=== PATIENT | female | born 1975 | race Caucasian/White ===

== ENCOUNTER 2018-07-13 15:37 | Outpatient (REF) | payer OTHER, SELFPAY ==
[2018-07-13 19:19] LABS: Abs Immature Grans 0.01 k/cumm (0.0-0.09); Absolute Basophil Count 0.03 k/cumm (0.0-0.2); Absolute Eosinophil Count 0.21 k/cumm (0.0-0.7); Absolute Lymphocyte Count 1.25 k/cumm (1.2-3.4); Absolute Monocyte Count 0.49 k/cumm (0.11-0.7); Absolute Neutrophil Count 4.47 k/cumm (1.2-6.7); Basophils % 0.5; Eosinophils % 3.3; HCT 38.4 % (36.0-46.0); HGB 12.5 g/dL (12.0-15.5); Immature Grans % 0.2; Lymphocytes % 19.3; Mean Corp. HGB Concentration 32.6 g/dL (32.0-36.0); Mean Corpuscular Hemoglobin 27.8 pg (27.0-33.0); Mean Corpuscular Volume 85.3 fL (80-95); Mean Platelet Volume 9.8 fL (8.0-11.0); Monocytes % 7.6; Neutrophils % 69.1; Platelet Count 366 x1000/uL (130-400); RBC Distribution Width 13.3 % (11.7-14.6); White Blood Cell Count 6.46 k/cumm (4.4-10.8)
[2018-07-13 20:19] LABS: ALT 17 U/L (12-78); AST 17 U/L (15-37); Albumin 3.3 g/dL (3.4-5.0); Alkaline Phosphatase 80 U/L (46-116); Anion Gap 8.7 mmol/L (3-11); BUN 17 mg/dL (7-18); Bilirubin, Total 0.2 mg/dL (0.2-1.0); CO2 30.3 mmol/L (21.0-32.0); CREATININE 0.66 mg/dL (0.55-1.02); Calcium 8.9 mg/dL (8.5-10.1); Chloride 104 mmol/L (98-107); Glucose 78 mg/dL (70-100); Potassium 3.6 mmol/L (3.5-5.1); Sodium 143 mmol/L (136-145); TSH (W/Ref FT4) 6.68 uIU/mL (0.358-3.74); Total Protein 7.5 g/dL (6.4-8.2)
[2018-07-13 21:02] LABS: FREE T4 0.66 ng/dL (0.76-1.46)
== END 2018-07-13 15:57 ==
LOC: NCHCN 15:37
PROVIDERS: PCP Nurse Practitioner Family; Visit Provider Nurse Practitioner Family
DX: Z00.00 Encounter for general adult medical examination without abnormal findings (principal); E04.2 Nontoxic multinodular goiter; E06.3 Autoimmune thyroiditis; R53.83 Other fatigue; I83.812 Varicose veins of left lower extremity with pain
CPT/HCPCS: 80053; 84439; 84443; 85025

== ENCOUNTER 2019-03-14 15:25 | Outpatient (REF) | payer OTHER, SELFPAY ==
[2019-03-20 08:37] LABS: IgA 192 mg/dL (85-499); Interpretation SEE COMMENTS; Tissue Transglutaminase IgA <1.2 U/mL (<4.0)
== END 2019-03-14 15:45 ==
LOC: NCHCN 15:25
PROVIDERS: PCP Nurse Practitioner Family; Visit Provider Nurse Practitioner Family
DX: K21.9 Gastro-esophageal reflux disease without esophagitis (principal); R19.7 Diarrhea, unspecified; R10.84 Generalized abdominal pain
CPT/HCPCS: 82784; 83516

== ENCOUNTER 2019-04-19 11:56 | Outpatient (REF) | payer OTHER, SELFPAY ==
[2019-04-19 14:03] LABS: TSH (W/Ref FT4) 1.77 uIU/mL (0.36-3.74)
== END 2019-04-19 12:16 ==
LOC: NCHCN 11:56
PROVIDERS: PCP Nurse Practitioner Family; Visit Provider Nurse Practitioner Family
DX: E06.3 Autoimmune thyroiditis (principal)
CPT/HCPCS: 84443

== ENCOUNTER 2020-01-19 15:08 | Outpatient (REF) | payer OTHER, SELFPAY ==
[2020-01-19 16:32] LABS: TSH (W/Ref FT4) 4.63 uIU/mL (0.36-3.74)
[2020-01-19 17:51] LABS: FREE T4 0.99 ng/dL (0.76-1.46)
== END 2020-01-19 15:28 ==
LOC: NCHCN 15:08
PROVIDERS: PCP Nurse Practitioner Family; Visit Provider Nurse Practitioner Family
DX: E06.3 Autoimmune thyroiditis (principal)
CPT/HCPCS: 84439; 84443

== ENCOUNTER 2020-02-26 18:48 | Outpatient (REF) | payer OTHER, SELFPAY ==
[2020-02-26 19:06] LABS: TSH (W/Ref FT4) 3.99 uIU/mL (0.36-3.74)
[2020-02-26 19:44] LABS: FREE T4 1.07 ng/dL (0.76-1.46)
== END 2020-02-26 19:08 ==
LOC: NCHCN 18:48
PROVIDERS: PCP Nurse Practitioner Family; Visit Provider Nurse Practitioner Family
DX: E06.3 Autoimmune thyroiditis (principal); Z00.00 Encounter for general adult medical examination without abnormal findings
CPT/HCPCS: 84439; 84443

== ENCOUNTER 2020-10-12 20:45 | Emergency (ER) | payer OTHER, SELFPAY ==
[2020-10-12] VITALS (13 sets, daily range): BP systolic 132; BP diastolic 76; PULSE 88–112; RESP 16–24; TEMP 37.2; O2SAT 95–100
--- NOTE | 2020-10-12 21:00 | RT.EKG_ITS ---
APPROVED REPORT Exam: Resting ECG Reason for Exam: epigastric pain Patient Location: E HR:90 bpm ECG Measurements Heart Rate 90 AXIS SD 115 P 11 QRSd 126 QRS 46 QT 394 T -7 QTc 482 Conclusion Sinus rhythm...normal P axis, V-rate 60- 99 Nonspecific intraventricular conduction delay...QRSd >115mS, not LBBB/RBBB Physician: Rate 90, sinus rhythm, no significant ST elevation or depression. No T wave inversion exc ept for in lead III. No STEMI.
--- NOTE | 2020-10-12 21:00 | DI.CT_ITS ---
Exam(s) CT ABDOMEN PELVIS W EXAM: CT ABDOMEN PELVIS W INDICATION: epigastric pain, vomiting, diarrhea, etoh. COMPARISON: No exams were available for comparison TECHNIQUE: FINDINGS: CT examination of the abdomen and pelvis was performed with a bolus infusion of 100 cc of Omnipaque 3 50. Images obtained through the lung bases are unremarkable. There are multiple loops of dilated bowel throughout the abdomen, multiple areas of wall thickening a re seen throughout the small bowel, question enteritis. The liver is unremarkable in appearance. Gallbladder and bile ducts are CT normal. Pancreas appears normal. Spleen is unremarkable in appearance. Adrenals appear normal. The kidneys are unremarkable with no evidence of hydronephrosis, nephrolithiasis, or renal mass.. Ur inary bladder unremarkable. Abdominal aorta is of normal diameter and no major vascular abnormality is seen. No abdominal wall hernia. No abdominal or pelvic adenopathy. There is a small to moderate quantity of free fluid in the pelvis. There is a suboptimally defined a pproximately 8 cm in greatest diameter low-attenuation structure, this is nonspecific but may represe nt an ovarian cysts, probably arising from right ovary with some complex and thickened septations of the right ovary. Correlation with pelvic ultrasound recommended for further characterization to excl ude malignancy or infectious process. Appendix is normal. No evidence of diverticulitis or bowel obstruction. IMPRESSION: Diffuse small bowel wall thickening and dilatation, question enteritis, please correlate clinically. Cystic/mixed pelvic mass, probably ovarian in origin originating from right ovary, pelvic ultrasound requested for correlation to exclude malignancy. RADIATION DOSE DELIVERED: 1,264.57mGy.cm Total DLP 1,264.57mGy.cm Total DLP RADIATION OPTIMIZATION: All CT scans at this facility use at least one of these dose optimization te chniques: automated exposure control; mA and/or kV adjustment per patient size (includes targeted exa ms where dose is matched to clinical indication); or iterative reconstruction.
--- NOTE | 2020-10-12 21:28 | ED.GENADUL_ITS ---
Discharge Plan Disposition Patient Disposition: [facility] Condition: Serious Discharge Details Chief Complaint: Abd Prob Clinical Impression: Pelvic mass, Ovarian torsion, Abdominal pain Primary Care Provider: Clint Calvert ED Provider: [facility] Meds and New Rx's Prescriptions: No Action ibuprofen 600 MG tablet 600 mg PO Q6H PRN (Reason: Pain) Qty: 20 RF: 0 levothyroxine 125 mcg tablet 125 mcg PO DAILY AM RF: 0 Medical Decision Making This is a 45-year-old female without much significant past medical history who presents today for evaluation of epigastric pain and lower pelvic pain. The patient states that around noon she developed mild epigastric and pelvic pain, gradual, which eventually worsened over the next few hours. At 4 PM she went had a loose bowel movement and urinated and had complete resolution of her pain. Shortly thereafter she developed sudden sharp and achy epigastric pain in the lower pelvic pain, pain has not remitted since. She has had associated vomiting, dark diarrhea, which she describes as nonbloody. She does admit to alcohol intake tonight, and did take 4 twisted teas earlier. She admits to drinking a single twisted tea nightly but otherwise does not drink any excessive alcohol. She denies any headache, chest pain, shortness of breath. She denies any personal cardiac history. No other complaints at this time. She denies chest pain or shortness of breath. She denies any radiation to the back or scapula. No other complaints at this time. Of note she does admit to a history of some chronic epigastric pain but states that this is notably different, more severe, and that she has not had the pelvic pain like this before. Physical exam demonstrates epigastric and right upper quadrant tenderness, but there also does seem to be some lower abdominal tenderness and pelvic tenderness as well. EKG shows no evidence of significant cardiac abnormality or ST elevation. Suspect the patient symptoms are likely from pancreas, cholecystitis or biliary colic. The lower abdominal tenderness is atypical though, we will get a CT scan for further assessment. She denies any vaginal discharge. We will treat the patient's pain, give a GI cocktail for potential gastric irritation however symptoms appear slightly inconsistent with alcoholic gastri tis. Will monitor closely and reassess. We will rehydrate. Symptoms at this time appear clinically inconsistent with ACS or PE or dissection. She has no history of A. fib or vascular disease. 12:23 AM Patient's pain has improved with morphine, but is still present. Laboratory work-up shows mild white count of 12.7, no bandemia. Lactate is notably unremarkable at 0.9. Electrolytes are normal. Renal function good. Troponin and EKG normal. Lipase normal. Urinalysis demonstrates some ketones but no other significant abnormality otherwise. Alcohol negative. Repeat exam continues to demonstrate mild epigastric tenderness and slightly more prominent lower pelvic tenderness. CT scan shows 2 abnormalities of no worthiness, patient demonstrates a circumferential wall thickening involving 10 cm segment of the jejunum, and also evidence of an 8 x 8 cm cystic mass appears septated in the pelvis. Radiology feels the jejunal component is atypical, they do not see any evidence upon my discussion with the radiologist of atherosclerotic disease, or other abnormality. Additionally the patient has no risk factors for ischemic gut picture she has no history of A. fib, vascular disease, or history of this. Additionally her lactate is normal. I did perform a stool Hemoccult and this was negative. In regards to the pelvic mass, torsion is of concern especially with the size of the mass. There is some free fluid in the pelvis, no other acute process. I did contact Dr. Clark of surgery and discussed the case, imaging, and labs with her. She does feel that this would certainly be atypical and/or inconsistent with ischemic gut in light of the normal lactate, and no history of vascular disease. She does defer to OB for the pelvic mass and potential torsion. No ultrasound is currently available. Did reach out to the on-call OB doctor, Dr. Piper. Nursing supervisor chlorine liquefaction has stated that she will contact us shortly. 12:49 AM Discussed the case with Dr. Piper, she is concerned for potential tumor or mass, and feels that patient does need surgical intervention, but because of the concern for potential malignancy she feels that the patient would require intraoperative oncology for a frozen smear, and feels that this patient would best be managed at [facility] rather than here. We will reach out to [facility]. 2:56 AM Discussed the case with of OB, and Dr. Fermin in the ED. They agree with the assessment and plan and agree with the need for transfer. Patient will be transferred in the ED to ED transfer. Patient's repeat lactate has returned and is 0.3, which appears to be notably inconsistent with an ischemic gut clinical picture. Repeat exam does not demonstrate evidence clinically of an ischemic gut at this time. Pain is notably improved with repeated dosings of morphine. Symptoms remain concerning for ovarian mass and torsion clinical picture. Patient will be transferred to [facility] for further surgical management. I have extensively reviewed the treatment plan with the patient. I have addressed all patient concerns at this time. I have also discussed the plan with the admitting physician and they agree with the current assessment and plan and have agreed to assume responsibility for the patient. All parties demonstrate verbal understanding and agreement with our assessment and plan at this time. The documentation in this chart was dictated using [employer] dictation software. Please excuse any dictation errors. EKG 22: 40 Rate 90, sinus rhythm, no significant ST elevation or depression. No T wave inversion except for in lead III. No STEMI. FINDINGS: Lungs: Lung bases are unremarkable. Liver: Homogeneously enhances without mass. Gallbladder and bile ducts: Gallbladder is mildly distended with minimal intrahepatic duct dilatation. Pancreas: No mass or peripancreatic edema. Spleen: Homogeneously enhances. No splenomegaly. Adrenal glands: No adrenal nodule. Kidneys and ureters: There is a 1.7 cm left renal cyst. Kidneys otherwise homogeneously enhance. No hydronephrosis. Stomach and bowel: There is circumferential wall thickening involving an approximately 10 cm segment jejunum. There is submucosal hypodensity within this segment with subtle stranding the adjacent mesentery. No pericolonic inflammation. No significant bowel dilatation. Appendix: No inflammation at the expected level of the appendix.. Intraperitoneal space: There is a mildly septated cystic mass centered within the cul-de-sac measuring approximately 8 x 7.7 cm. There is a small amount ascites adjacent to the right inferior hepatic lobe tip, left hemipelvis and adjacent the uterine fundus. Vasculature: No abdominal aortic aneurysm. Lymph nodes: No significant adenopathy. Urinary bladder: No definite bladder wall thickening. Reproductive: There are mildly prominent vessels in the right adnexal region. Bones/joints: No significant bony or joint space abnormality. Soft tissues: Extra-abdominal soft tissues are unremarkable. IMPRESSION: 1. Septated cystic pelvic mass with associated ascites. Follow-up pelvic ultrasound recommended for further evaluation of the mass and to exclude ovarian torsion. 2. Segmental small bowel wall thickening with differential including intramural hemorrhage and/or ischemia. Thank you for allowing us to participate in the care of your patient. Dictated and Authenticated by: Davin Baires MD 10/12/2020 11:52 PM Eastern Time ([place] & [place]) HPI General Date/Time Provider Initiated Documentation: 10/12/20 20:48 . HPI Narrative: This is a 45-year-old female without much significant past medical history who presents today for evaluation of epigastric pain and lower pelvic pain. The patient states that around noon she developed mild epigastric and pelvic pain, gradual, which eventually worsened over the next few hours. At 4 PM she went had a loose bowel movement and urinated and had complete resolution of her pain. Shortly thereafter she developed sudden sharp and achy epigastric pain in the lower pelvic pain, pain has not remitted since. She has had associated vomiting, dark diarrhea, which she describes as nonbloody. She does admit to alcohol intake tonight, and did take 4 twisted teas earlier. She admits to drinking a single twisted tea nightly but otherwise does not drink any excessive alcohol. She denies any headache, chest pain, shortness of breath. She denies any personal cardiac history. No other complaints at this time. She denies chest pain or shortness of breath. She denies any radiation to the back or scapula. No other complaints at this time. Of note she does admit to a history of some chronic epigastric pain but states that this is notably different, more severe, and that she has not had the pelvic pain like this before. Related Data Home Medications Medication Instructions Recorded Confirmed ibuprofen 600 mg PO Q6H PRN #20 tab 04/21/17 levothyroxine 125 mcg PO DAILY AM 10/12/20 10/12/20 Previous Rx's Medication Instructions Recorded ibuprofen 600 mg PO Q6H PRN #20 tab 04/21/17 Allergies Allergy/AdvReac Type Severity Reaction Status Date / Time No Known Allergies Allergy Unverified 04/21/17 08:39 General Stated Complaint: Abd Prob OKSANA: 3 Review of Systems All systems reviewed & are unremarkable except as noted in HPI and below PFSH Social History Smoking/Tobacco Use Status: Former Tobacco Use Smoking risk assessment performed?: Yes Alcohol Intake: current Alcohol Intake frequency: 0-2 drinks per day Drug use: Rarely Substance use type: does not use and marijuana Do you feel safe at home: Yes Do you feel safe in your relationship?: Yes Exam Narrative Exam Narrative: 1.Const: Well-nourished, Well-developed, appearing stated age 2.Eyes: PERRL, no conjunctival injection, and symmetrical lids. 3.ENT: Atraumatic external nose and ears. Moist MM. Neck: Symmetric, trachea midline, No thyromegaly. 4.CVS: +S1/S2, No murmurs or gallops. Peripheral pulses 2+ and equal in all extremities. Brisk capillary refill in all extremities. 5.RESP: Unlabored respiratory effort. Clear to auscultation bilaterally. No wheezes rales or rhonchi 6.GI: Soft, notable epigastric tenderness, pain in the right upper quadrant and left upper quadrant as well. No pain at McBurney's point, patient does seem to have a positive Harrison sign. She does have pain in the generalized lower abdominal region though as well, including the pelvic region. No flank or CVA tenderness. 7.MSK: Normocephalic/Atraumatic, Extremities w/o deformity or ttp No cyanosis or clubbing, Normal movement of all extremities 8.Skin: Warm, Dry. No rashes or lesions. 9.Neuro: director of collections II-XII grossly intact. Sensation grossly intact, no focal neurologic deficits. 10.Psych: (AAO) x3. Appropriate mood and affect Course Vital Signs Vital signs: Vital Signs Temperature 37.2 C 10/12/20 21:02 Pulse 112 H 10/12/20 21:02 Respiratory Rate 18 10/12/20 21:02 Blood Pressure 132/76 10/12/20 21:02 Pulse Oximetry 100 10/12/20 21:02 Temperature 37.2 C 10/12/20 21:02 Temperature Source Temporal Artery Scan 10/12/20 21:02 Pulse 112 H 10/12/20 21:02 Respiratory Rate 18 10/12/20 21:02 Blood Pressure 132/76 10/12/20 21:02 Blood Pressure Position Supine 10/12/20 21:02 Pulse Oximetry 100 10/12/20 21:02 Oxygen Delivery Method Room Air 10/12/20 21:02 Oxygen Flow Rate 0 10/12/20 21:02 Pain Level 8 10/12/20 21:02
[2020-10-12 21:41] LABS: Abs Immature Grans 0.04 10^3/uL (0.0-0.06); Absolute Eosinophil Count 0.01 10^3/uL (0.0-0.7); Absolute Lymphocyte Count 0.43 10^3/uL (1.2-3.4); Absolute Monocyte Count 0.82 10^3/uL (0.1-0.8); Absolute Neutrophil Count 11.42 10^3/uL (1.2-6.7); Basophils % 0.2; Eosinophils % 0.1; Immature Grans % 0.3; Lymphocytes % 3.4; MCH 27.3 pg (27.0-33.0); MCHC 32.4 % (32.0-36.0); MCV 84.1 fL (80-95); MPV 9.3 fL (8.0-11.0); Monocytes % 6.4; Neutrophils % 89.6; Nucleated RBC 0 %; Platelet Count 291 10^3/uL (130-400); RDW 13.3 % (11.7-14.6); RDW-SD 41.1 fL; WBC 12.74 10^3/uL (4.4-10.8)
[2020-10-12] MEDS: Ondansetron 4 MG/2 ML VIAL IVP (21:42)
[2020-10-12] MEDS: Normal Saline 1,000 ML 1000 ML IV (21:43)
[2020-10-12 21:45] LABS: Lactate 0.9 mmol/L (0.6-1.4)
[2020-10-12 21:56] LABS: Lipase 54 U/L (73-393)
[2020-10-12 22:01] LABS: ALT 19 U/L (14-59); AST 24 U/L (15-37); Albumin 3.4 g/dL (3.4-5.0); Alkaline Phosphatase 75 U/L (46-116); Anion Gap 10.8 mmol/L (3-11); BUN 9 mg/dL (7-18); Bilirubin, Total 0.4 mg/dL (0.2-1.0); CO2 27.2 mmol/L (21.0-32.0); CREATININE 0.8 mg/dL (0.55-1.02); Calcium 8.5 mg/dL (8.5-10.1); Chloride 105 mmol/L (98-107); Glucose 98 mg/dL (74-106); Potassium 3.9 mmol/L (3.5-5.1); Sodium 143 mmol/L (136-145); Total Protein 7.6 g/dL (6.4-8.2)
[2020-10-12 22:07] LABS: Troponin I < 0.05 ng/mL (<0.06)
[2020-10-12] MEDS: Normal Saline - Diluent 50 ML VIAL IV (22:12)
[2020-10-12] MEDS: Omnipaque 350 MG/ML 100 ML BTL IJ (22:12)
[2020-10-12 22:16] LABS: ETHANOL BLOOD < 3.0 mg/dL (<3)
[2020-10-12 22:20] LABS: Absolute Basophil Count 0.03 10^3/uL (0.0-0.2)
[2020-10-12 22:23] LABS: Bilirubin Negative (Negative); Blood Moderate (Negative); Clarity Clear (Clear); Glucose Negative (Negative); Ketones 80 mg/dL (Negative); Leukocyte Esterase Negative (Negative); Nitrite Negative (Negative); Specific Gravity 1.025 (1.005-1.025); Urobilinogen 0.2 EU/dL (Up TO 0.2); pH 5.5 (5-8)
[2020-10-12 22:42] LABS: Bacteria Negative HPF (Negative); C & S Indicated? No; Casts Negative LPF (Negative); Crystals Negative HPF (Negative); Epithelial Cells Few HPF (Negative); Mucus Negative (Negative); Other Cells Negative (Negative); WBC 0-2 HPF (0-5)
[2020-10-12 23:01] LABS: Bilirubin, Direct 0.1 mg/dL (0.0-0.2)
[2020-10-12 23:13] LABS: INR 1.1 (0.9-1.1); PTT Activated 25.5 sec (21.0-27.5); Prothrombin Time 10.9 sec (9.3-11.0)
[2020-10-12] MEDS: ACETAMINOPHEN 1,000 MG/100 ML BTL 400 MG IVPB (23:30)
--- NOTE | 2020-10-12 23:53 | DI.VRAD_ITS ---
Addendum created by Davin Baires MD on 10/13/2020 12:04:01 AM EDT: THIS REPORT CONTAINS FINDINGS THAT MAY BE CRITICAL TO PATIENT CARE. The findings were verbally communicated via telephone conference with JOSIE CERVANTES at 12:03 AM EDT on 10/13/2020. The findings were acknowledged and understood. Initial report created on 10/12/2020 11:52:41 PM EDT: PROCEDURE INFORMATION: Exam: CT Abdomen And Pelvis With Contrast Exam date and time: 10/12/2020 9:05 PM Age: 45 years old Clinical indication: Abdominal pain; Epigastric TECHNIQUE: Imaging protocol: Computed tomography of the abdomen and pelvis with contrast. Total images: 1351 Radiation optimization: All CT scans at this facility use at least one of these dose optimization techniques: automated exposure control; mA and/or kV adjustment per patient size (includes targeted exams where dose is matched to clinical indication); or iterative reconstruction. Contrast material: OMNIPAQUE 350; Contrast volume: 1000 ml; Contrast route: INTRAVENOUS (IV); COMPARISON: No relevant prior studies available. FINDINGS: Lungs: Lung bases are unremarkable. Liver: Homogeneously enhances without mass. Gallbladder and bile ducts: Gallbladder is mildly distended with minimal intrahepatic duct dilatation. Pancreas: No mass or peripancreatic edema. Spleen: Homogeneously enhances. No splenomegaly. Adrenal glands: No adrenal nodule. Kidneys and ureters: There is a 1.7 cm left renal cyst. Kidneys otherwise homogeneously enhance. No hydronephrosis. Stomach and bowel: There is circumferential wall thickening involving an approximately 10 cm segment jejunum. There is submucosal hypodensity within this segment with subtle stranding the adjacent mesentery. No pericolonic inflammation. No significant bowel dilatation. Appendix: No inflammation at the expected level of the appendix.. Intraperitoneal space: There is a mildly septated cystic mass centered within the cul-de-sac measuring approximately 8 x 7.7 cm. There is a small amount ascites adjacent to the right inferior hepatic lobe tip, left hemipelvis and adjacent the uterine fundus. Vasculature: No abdominal aortic aneurysm. Lymph nodes: No significant adenopathy. Urinary bladder: No definite bladder wall thickening. Reproductive: There are mildly prominent vessels in the right adnexal region. Bones/joints: No significant bony or joint space abnormality. Soft tissues: Extra-abdominal soft tissues are unremarkable. IMPRESSION: 1. Septated cystic pelvic mass with associated ascites. Follow-up pelvic ultrasound recommended for further evaluation of the mass and to exclude ovarian torsion. 2. Segmental small bowel wall thickening with differential including intramural hemorrhage and/or ischemia. Dictated and Authenticated by: Davin Baires MD. Ordering:JAYME Madden MD
[2020-10-13] VITALS (39 sets, daily range): BP systolic 94–123; BP diastolic 46–68; PULSE 71–97; RESP 15–27; TEMP 37.3; O2SAT 93–97
[2020-10-13 01:22] LABS: Lactate 0.3 mmol/L (0.6-1.4)
== END 2020-10-13 04:00 | disposition short-term general hospital (02) ==
PROVIDERS: Emergency Provider Student in an Organized Health Care Education/Training Program; PCP Nurse Practitioner Family
DX: R19.09 Other intra-abdominal and pelvic swelling, mass and lump (principal); N83.511 Torsion of right ovary and ovarian pedicle; R10.13 Epigastric pain; R10.2 Pelvic and perineal pain
CPT/HCPCS: 36415; 80053; 81025; 83690; 93005; 96361; 96365; 96375; 96376; 99285; 74177; 80320; 81003; 81015; 82248; 83605; 84484; 85025; 85610; 85730; 93010; 99284; J0131; J2405; J3490

== ENCOUNTER 2020-10-16 15:05 | Emergency (ER) | payer OTHER, SELFPAY ==
[2020-10-16] VITALS (21 sets, daily range): BP systolic 109–131; BP diastolic 71–88; PULSE 73–98; RESP 15; TEMP 36.6; O2SAT 92–97
--- NOTE | 2020-10-16 15:45 | DI.CT_ITS ---
Exam(s) CT ABDOMEN PELVIS CTA EXAM: CT ABDOMEN PELVIS CTA CLINICAL HISTORY: severe abdomen pain. TECHNIQUE: Imaging Protocol: Axial computed tomography images with coronal and sagittal reformatted images were created and reviewed CONTRAST MATERIAL: Intravenous: Omnipaque 350 Contrast volume:100 ml Oral: None COMPARISON: CT CT ABDOMEN PELVIS W from 10/12/2020 FINDINGS: ABDOMEN: VISUALIZED LUNG BASES: Mild atelectasis. No pleural effusions There is no evidence of abdominal aortic aneurysm nor dissection.There is no aneurysmal dilatation of the common iliac arteries.The celiac and superior mesenteric arteries are patent.The inferior mesent lboo artery is patent. Aortic bifurcation is patent-unremarkable. Common and external iliac arteries exhibit normal diamete rs. No significant atherosclerotic disease in these vessels nor in the common femoral arteries. Bot h internal iliac arteries are also patent and nonaneurysmal. There are multiple bilateral renal cherelle christie which are all patent. There appear to be 3 left renal arteries in 2 right renal arteries, all w ith different origins off the aorta. All appear to be patent. Kidneys exhibit normal size. There is a moderate-large amount of ascites evident in the abdomen and pelvis. LIVER: There are no focal hepatic lesions nor dilatation of intrahepatic ducts. GALLBLADDER/BILIARY: No obvious gallbladder pathology. CBD is not dilated. PANCREAS: No evidence of pancreatic mass nor dilatation of the pancreatic duct. SPLEEN: Spleen is not enlarged. There are no intrasplenic lesions. Splenic and portal veins are lunsford nt. ADRENALS: There are no significant adrenal masses. KIDNEYS: No cysts evident. No calculi nor hydronephrosis. No solid renal masses. ABDOMINAL AORTA: The abdominal aorta is not enlarged. LYMPH NODES: There is no retroperitoneal nor para-aortic adenopathy. No obvious mesenteric masses. ABDOMINAL WALL: No evidence of significant anterior abdominal wall hernia. However, there is subcuta neous air in the left side of the abdomen. Possibly postsurgical. There is no intraperitoneal air. GI: There are dilated small bowel loops throughout the abdomen with average diameter 3.2 cm. The mos t distal small bowel loops exhibit normal diameter. Is difficult to locate the actual ileocecal valv e. PELVIS: LYMPH NODES: Multiple slightly prominent lymph nodes are seen throughout the mesentery. GI: No evidence of appendicitis.No evidence of sigmoid diverticulitis. URINARY BLADDER: No calculi nor masses evident REPRODUCTIVE: Uterus size is age-appropriate. There is abundant fluid in the cul-de-sac. Ovaries ar e not identified but there do not appear to be obvious ovarian masses. The fluid in the lung the lar ge amount of fluid in the cul-de-sac appears to be early related to the ascites. OSSEOUS: Benign appearing bone island noted anteriorly in L4 vertebral body. No lytic osseous lesion s evident. IMPRESSION: 1. There is a high-grade distal small-bowel obstruction. There is abundant ascites in the abdomen an d pelvis.. Surgical consultation recommended. 2. There is air seen in the subcutaneous fat over the left side of the abdomen and inguinal region. Possibly postsurgical. There is no free intraperitoneal air at this time. RADIATION DOSE DELIVERED: 977.59mGy.cm Total DLP DATA REPOSITORY: All CT scans at this facility are submitted to the National Radiology Data Registry (NRDR) Dose Index Registry (DIR) with the [employer] ([employer]). RADIATION OPTIMIZATION: All CT scans at this facility use at least one of these dose optimization te chniques: automated exposure control; mA and/or kV adjustment per patient size (includes targeted exa ms where dose is matched to clinical indication); or iterative reconstruction.
--- NOTE | 2020-10-16 15:49 | ED.GENADUL_ITS ---
Discharge Plan Disposition Patient Disposition: [facility] Condition: Stable Discharge Details Clinical Impression: SBO (small bowel obstruction) Primary Care Provider: Clint Calvert ED Provider: Oscar Pierre Home Meds and New Rx's Prescriptions: No Action ibuprofen 600 MG tablet 600 mg PO Q6H PRN (Reason: Pain) Qty: 20 RF: 0 levothyroxine 125 mcg tablet 125 mcg PO DAILY AM RF: 0 pantoprazole 40 mg tablet,delayed release (DR/EC) 40 mg PO DAILY RF: 0 ondansetron 4 mg tablet,disintegrating 4 mg PO PRN PRNRF: 0 oxycodone 5 mg tablet 5 mg PO PRN PRNRF: 0 Medical Decision Making 45 yo female who denies chronic medical problems comes in with chief complaint of abdomen pain and n/v. She was seen here on 10/[address] showing a right ovarian mass [place] [facility] [place] her right ovary and fallopian tube as well as partial left fallopian tube removed per the patient and was discharged yesterday. She states she started to have pain throughout her abdomen and today has been having persistent vomit though she does state she took zofran around noon and hasn't had an episode of vomit since though continues to have diffuse abdomen pain. Denies fevers, chills, chest pain, dyspnea. Has tenderness throughout the abdomen with mild distention which she states is new for her. Given her symptoms and recent surgery will obtain labs and imaging to evaluate for pneumoperitoneum, sbo, ileus and less likely mesenteric ischemia patient's labs unremarkable does have sbo on ct along with free fluid, remains stable. Will have nursing place NG tube and discuss with [place] health [place] [facility] [place] spoke with Dr. Newberry from surgery who accepts to their ED and spoke with [place]ernstein [place] [facility] [place] was made aware as well. Pt stable and NG tube placed by nursing without complications. Pt updated and agrees with plan Differential Diagnosis Differential Diagnosis: sbo, ileus, post op pain and nausea and vomit Medical Records Medical records reviewed: Yes I reviewed the patient's medical records. Imaging Data Radiologic Study: Attestation: I personally reviewed and interpreted this imaging study as follows: Imaging: CT Scan Radiologist's impression: IMPRESSION: 1. Findings suspicious for make an occult small-bowel obstruction in the mid to distal ileum, likely from adhesive disease. 2. Moderate to large amount of free fluid in the abdomen and pelvis. 3. Areas of wall thickening of distal ileum suspicious for enteritis 4. Postoperative changes in left anterior abdominal wall and both inguinal regions. Lab Data Lab results reviewed: Yes I reviewed the patient's lab results. HPI General Mode of arrival: ambulatory . Date/Time Provider Initiated Documentation: 10/16/20 15:15 . Limitations to Documentation: no limitations . Information obtained by: patient . History of Present Illness 45 year old F presents to the emergency department with the chief complaint of abdomen pain, described as moderate, Patient reports no radiation. Patient started experiencing this day(s) (1) and it has been constant. No relieving factors improve symptom(s), No exacerbating factors reported . Patient notes nausea/vomiting. Patient did receive the following treatments prior to arrival, none Related Data Home Medications Medication Instructions Recorded Confirmed ibuprofen 600 mg PO Q6H PRN #20 tab 04/21/17 10/16/20 levothyroxine 125 mcg PO DAILY AM 10/12/20 10/16/20 ondansetron 4 mg PO PRN PRN 10/16/20 10/16/20 oxycodone 5 mg PO PRN PRN 10/16/20 10/16/20 pantoprazole 40 mg PO DAILY 10/16/20 10/16/20 Previous Rx's Medication Instructions Recorded ibuprofen 600 mg PO Q6H PRN #20 tab 04/21/17 Allergies Allergy/AdvReac Type Severity Reaction Status Date / Time No Known Allergies Allergy Unverified 04/21/17 08:39 General Stated Complaint: Abd Prob OKSANA: 2 Review of Systems All systems reviewed & are unremarkable except as noted in HPI and below Constitutional Constitutional: Denies chills, Denies fever(s) and Denies weakness Cardiovascular Cardiovascular: Denies chest pain and Denies dyspnea Respiratory Respiratory: Denies cough and Denies dyspnea Neurologic Neurologic: Denies weakness [facility] Social History Smoking/Tobacco Use Status: Former Tobacco Use Smoking risk assessment performed?: Yes Alcohol Intake: current Alcohol Intake frequency: 0-2 drinks per day Drug use: Rarely Substance use type: does not use and marijuana Do you feel safe at home: Yes Do you feel safe in your relationship?: Yes Exam Const General: other (appears in pain) Orientation: alert HENOK Head: normal to inspection Ears: external ears normal General nose exam: external nose normal Mouth: moist mucous membranes Eyes General: appearance normal, both eyes and all related structures Neck Neck: normal visual inspection Resp Effort & Inspection: normal respiratory effort and able to speak in complete sentences Cardio Rate: regular rate GI Palpation: firm and tender Skin General skin exam: no rashes or lesions noted Neuro General: patient alert and patient oriented x3 Extrem General: normal to inspection Psych Mental Status: mental status grossly normal Course Vital Signs Vital signs: Vital Signs Temperature 36.6 C 10/16/20 15:35 Pulse 87 10/16/20 15:35 Respiratory Rate 15 10/16/20 15:35 Blood Pressure 117/73 10/16/20 15:35 Pulse Oximetry 96 10/16/20 15:35 Temperature 36.6 C 10/16/20 15:35 Pulse 87 10/16/20 15:35 Respiratory Rate 15 10/16/20 15:35 Blood Pressure 117/73 10/16/20 15:35 Pulse Oximetry 96 10/16/20 15:35 Oxygen Delivery Method Room Air 10/16/20 15:35 Oxygen Flow Rate 0 10/16/20 15:35 Pain Level 10 10/16/20 15:35
[2020-10-16] MEDS: Ondansetron 4 MG/2 ML VIAL IVP (16:07)
[2020-10-16] MEDS: Normal Saline 1,000 ML 1000 ML IV (16:07)
[2020-10-16 16:12] LABS: Abs Immature Grans 0.03 10^3/uL (0.0-0.06); Absolute Basophil Count 0.03 10^3/uL (0.0-0.2); Absolute Eosinophil Count 0.01 10^3/uL (0.0-0.7); Absolute Lymphocyte Count 0.71 10^3/uL (1.2-3.4); Absolute Monocyte Count 0.26 10^3/uL (0.1-0.8); Absolute Neutrophil Count 7.91 10^3/uL (1.2-6.7); Basophils % 0.3; Eosinophils % 0.1; HCT 48.4 % (36.0-46.0); HGB 15.6 g/dL (11.2-15.7); Immature Grans % 0.3; Lactate 1.2 mmol/L (0.6-1.4); Lymphocytes % 7.9; MCH 26.9 pg (27.0-33.0); MCHC 32.2 % (32.0-36.0); MCV 83.4 fL (80-95); MPV 9.7 fL (8.0-11.0); Monocytes % 2.9; Neutrophils % 88.5; Nucleated RBC 0 %; Platelet Count 411 10^3/uL (130-400); RDW 13.2 % (11.7-14.6); WBC 8.95 10^3/uL (4.4-10.8)
[2020-10-16 16:29] LABS: PTT Activated 23.8 sec (21.0-27.5); Prothrombin Time 10.2 sec (9.3-11.0)
[2020-10-16 16:35] LABS: ALT 13 U/L (14-59); AST 16 U/L (15-37); Albumin 3.1 g/dL (3.4-5.0); Alkaline Phosphatase 74 U/L (46-116); Anion Gap 11.4 mmol/L (3-11); BUN 8 mg/dL (7-18); Bilirubin, Direct 0.1 mg/dL (0.0-0.2); Bilirubin, Total 0.3 mg/dL (0.2-1.0); CO2 26.6 mmol/L (21.0-32.0); CREATININE 0.8 mg/dL (0.55-1.02); Calcium 8.9 mg/dL (8.5-10.1); Chloride 103 mmol/L (98-107); Glucose 121 mg/dL (74-106); Lipase 70 U/L (73-393); Potassium 3.6 mmol/L (3.5-5.1); Sodium 141 mmol/L (136-145); Total Protein 7.8 g/dL (6.4-8.2)
[2020-10-16] MEDS: Omnipaque 350 MG/ML 100 ML BTL IJ (16:45)
[2020-10-16] MEDS: Normal Saline - Diluent 50 ML VIAL IV (16:45)
--- NOTE | 2020-10-16 17:12 | DI.VRAD_ITS ---
Addendum created by Rebeka Pickett MD on 10/16/2020 5:24:32 PM EDT: THIS REPORT CONTAINS FINDINGS THAT MAY BE CRITICAL TO PATIENT CARE. The findings were verbally communicated via telephone conference with Oscar Pierre at 5:24 PM EDT on 10/16/2020. The findings were acknowledged and understood. Initial report created on 10/16/2020 5:12:28 PM EDT: PROCEDURE INFORMATION: Exam: CTA Abdomen and Pelvis With Contrast Exam date and time: 10/16/2020 3:53 PM Age: 45 years old Clinical indication: Abdominal pain; Acute; Prior surgery; Surgery date: 3-7 days post-operative; Surgery type: Cyst removal TECHNIQUE: Imaging protocol: Computed tomographic angiography of the abdomen and pelvis with contrast material. 3D rendering (Not supervised by radiologist): MIP and/or 3D reconstructed images were created by the technologist. Contrast material: OMNIPAQUE 350; Contrast volume: 100 ml; Contrast route: INTRAVENOUS (IV); COMPARISON: CT ABDOMEN PELVIS W 10/12/2020 10:15 PM FINDINGS: Lungs: Dependent atelectasis in the lungs. Aorta: No aortic aneurysm. No aortic dissection. Celiac trunk and mesenteric arteries: No occlusion or significant stenosis. Renal arteries: There are 3 left renal arteries, all of which appear patent. There are 2 right renal arteries, both of which appear patent. Right iliac arteries: No occlusion or significant stenosis. Left iliac arteries: No occlusion or significant stenosis. Liver: No mass. Gallbladder and bile ducts: Unremarkable. No calcified stones. No ductal dilation. Pancreas: Unremarkable. No mass. No ductal dilation. Spleen: Unremarkable. No splenomegaly. Adrenal glands: Unremarkable. No mass. Kidneys and ureters: Unremarkable. No solid mass. No hydronephrosis. Stomach and bowel: Dilated fluid-filled loops of small bowel throughout the abdomen with a maximum diameter 4.2 cm in the central abdomen. There is focal caliber change to normal caliber bowel in the more distal ileum seen in the right lower quadrant on axial series 5, images 47-51. This is suspicious for mechanical obstruction from adhesive disease. Several of the more distal loops of ileum have slightly thickened gaspar which could be due to enteritis. This appears similar to the CT of 10/12/2020. Gas distended transverse colon measuring approximately 5 cm in diameter. Distended fluid-filled cecum measuring approximately 7 cm in diameter. Appendix: No evidence of appendicitis. Intraperitoneal space: The the moderate to large amount of ascites. Lymph nodes: Stable enlarged mesenteric lymph nodes. Urinary bladder: Unremarkable. No mass. Reproductive: Unremarkable as visualized. Bones/joints: Minimal degenerative arthritis in the spine and pelvis. Soft tissues: Pockets of gas in the subcutaneous of bilateral inguinal regions, left worse than right and in left anterior abdominal wall. This is likely related to recent surgery.. IMPRESSION: 1. Findings suspicious for make an occult small-bowel obstruction in the mid to distal ileum, likely from adhesive disease. 2. Moderate to large amount of free fluid in the abdomen and pelvis. 3. Areas of wall thickening of distal ileum suspicious for enteritis 4. Postoperative changes in left anterior abdominal wall and both inguinal regions. Dictated and Authenticated by: Rebeka Pickett MD. Ordering:ANGELICA Moore MD
[2020-10-16] MEDS: Normal Saline 1,000 ML 150 ML IV (17:37)
== END 2020-10-16 19:35 | disposition short-term general hospital (02) ==
PROVIDERS: Emergency Provider Emergency Medicine; PCP Nurse Practitioner Family
DX: K56.699 Other intestinal obstruction unspecified as to partial versus complete obstruction (principal); R18.8 Other ascites; Z98.890 Other specified postprocedural states
CPT/HCPCS: 36415; 80053; 81025; 83690; 96361; 96374; 96375; 96376; 99285; 74174; 81003; 82248; 83605; 85025; 85610; 85730; J2405; J3490

== ENCOUNTER 2021-01-01 18:51 | Outpatient (REF) | payer OTHER, SELFPAY ==
[2021-01-01 21:50] LABS: Calculated LDL 99 mg/dL (<100); Cholesterol 153 mg/dL (<200); HDL Cholesterol 44 mg/dL (40-60); TSH (W/Ref FT4) 2.76 uIU/mL (0.36-3.74); Triglyceride 52 mg/dL (<150); Vitamin B12 619 pg/mL (193-986)
== END 2021-01-01 18:52 | disposition home or self-care (01) ==
LOC: NCHCN 18:51
PROVIDERS: PCP Nurse Practitioner Family; Visit Provider Nurse Practitioner
DX: E53.8 Deficiency of other specified B group vitamins (principal); E06.3 Autoimmune thyroiditis
CPT/HCPCS: 80061; 82607; 84443

== ENCOUNTER 2021-06-18 01:16 | Outpatient (CLI) | payer BC, SELFPAY ==
[2021-06-18 12:15] LABS: Source Nasal/Nares
[2021-06-18 15:08] LABS: COVID-19 PCR Negative (Negative)
== END 2021-06-18 01:17 | disposition home or self-care (01) ==
LOC: LBO 01:16
PROVIDERS: PCP Family Medicine; Visit Provider Podiatrist
DX: Z20.822 Contact with and (suspected) exposure to COVID-19 (principal); Z01.818 Encounter for other preprocedural examination
CPT/HCPCS: 87635

== ENCOUNTER 2021-06-20 06:13 | Day surgery (SDC) | payer BC, SELFPAY ==
--- NOTE | 2021-06-19 19:47 | W.PM.HP.N ---
Date of service: 06/19/21 Time of Service: 19:47 History of Present Illness History of Present Illness Chief Complaint: 46 YO Female with pain affecting the posterior of the right heel. Narrative: Right posterior heel pain interfering with shoe gear, work and daily activity which has not responded to palliativie treatments for surgical repair. PFSH All Active Problems Pelvic mass (Acute) Ovarian torsion (Acute) Abdominal pain (Acute) SBO (small bowel obstruction) (Acute) Medical History Acid reflux Allergic rhinitis Fatigue Goiter Patrick's thyroiditis History of varicose veins Vitamin B12 deficiency Surgical History History of removal of ovarian cyst and fallopian tube Social History Smoking/Tobacco Use Status: Former Tobacco Use Quit Date: 05/24/16 Smoking risk assessment performed?: Yes Alcohol Intake: current Alcohol Intake frequency: a few times a week Drug use: Rarely Substance use type: marijuana Do you feel safe at home: Yes Do you feel safe in your relationship?: Yes Meds Allergies and Home Medications Allergies Allergy/AdvReac Type Severity Reaction Status Date / Time No Known Allergies Allergy Unverified 06/18/21 14:55 Home Medications Medication Instructions Recorded Confirmed Type ibuprofen 600 mg PO Q6H PRN #20 tab 04/21/17 06/18/21 Rx levothyroxine 125 mcg PO DAILY AM 10/12/20 06/18/21 History ondansetron 4 mg PO PRN PRN 10/16/20 06/18/21 History oxycodone 5 mg PO PRN PRN 10/16/20 06/18/21 History cyanocobalamin (vitamin B-12) 1,000 mcg PO DAILY 06/16/21 06/18/21 History fexofenadine [Argelia Allergy] 60 mg PO DAILY 06/16/21 06/18/21 History omeprazole 20 mg PO DAILY 06/16/21 06/18/21 History Exam Narrative Exam Narrative: pleasant, 46 YO female in NAD Heads Normocephalic eyes PERLLA Hearing is adequate Uvula is midline, airway looked accessible Heart has RRR, no gallops, rubs or murmurs Lung mirza are clear Abdomen is soft, BS x 4 Enlargment of the posterior aspect of the right heel is noted at the level of the Achilles insertion. Muscle strength is 5/5. Radiographic evidence of a retro calcaneal exostosis and enthesopathy noted. Imp: Achilles enthesopathy right Calcaneal exostosis right Plan: Lili is being brought to the OR for debridement of the achilles tendon, resection of the calcaneal exostosis to the RLE. Risks and complications were reviewed emphasizing the potential for pain, scarring, infection, DVT, tendon rupture, calcaneal fracture, recurrence of enthesopathy requiring revision surgery. All questions were answered in detail. Informed consent obtained.
[2021-06-20 06:27] VITALS: BP 116/75; PULSE 82; RESP 16; TEMP 36.7; O2SAT 100
--- NOTE | 2021-06-20 07:03 | W.ANESPRE ---
General Info Date of Service Date Performed: 06/20/21 Height: 6 ft Weight: 106.2 kg Body Mass Index (BMI): 31.7 Surgical Procedure: Operation Date: 06/20/21 07:40 Proposed Procedures Side Surgeon p Debridement Right Achilles and Calcaneous Spur Right Yoni Bela Perez DPM Meds Allergies and Home Medications Allergies Allergy/AdvReac Type Severity Reaction Status Date / Time No Known Allergies Allergy Unverified 06/20/21 06:38 Home Medication Medication Instructions Recorded ibuprofen 600 mg PO Q6H PRN #20 tab 04/21/17 levothyroxine 125 mcg PO DAILY AM 10/12/20 ondansetron 4 mg PO PRN PRN 10/16/20 oxycodone 5 mg PO PRN PRN 10/16/20 cyanocobalamin (vitamin B-12) 1,000 mcg PO DAILY 06/16/21 fexofenadine [Argelia Allergy] 60 mg PO DAILY 06/16/21 omeprazole 20 mg PO DAILY 06/16/21 multivitamin [Daily Multi-Vitamin] tab 06/20/21 Current Visit Medications: Current Medications Generic Name Dose Route Start Last Admin Trade Name Freq PRN Reason Stop Dose Admin Sodium Chloride 500 mls @ 0 mls/hr 06/20/21 06:00 Saline 500ml Bag IV PRN PRN As Directed Cefazolin Sodium/Dextrose 2 gm in 50 mls @ 100 mls/hr 06/20/21 06:00 Ancef Duplex IVPB PREOP LETICIA Ringer's Solution 1,000 mls @ 80 mls/hr 06/20/21 06:00 IV 06/23/21 23:59 INFUSION LETICIA IV Miscellaneous Supplies 1 each 06/20/21 06:00 Iv Access IV DIRECTED LETICIA IV Miscellaneous Supplies 1 each 06/20/21 06:00 Iv Access IV 06/23/21 23:59 DIRECTED LETICIA Povidone Iodine 0 ml 06/20/21 06:00 Povidone-Iodine Soln. 118 Ml Btl TP DIRECTED LETICIA Sodium Chloride 0 ml 06/20/21 06:00 Normal Saline Flush 10 Ml Syr IV 06/23/21 23:59 PRN PRN Sodium Chloride 0 ml 06/20/21 06:00 Normal Saline 10 Ml Vial IJ 06/23/21 23:59 DIRECTED PRN Sterile Water 0 ml 06/20/21 06:00 Water,Injection,Sterile 10 Ml Vial IJ 06/23/21 23:59 DIRECTED PRN PFSH Active Problems Active Problems: Problem Status Onset Code Pelvic mass R19.00 Ovarian torsion N83.519 Abdominal pain R10.9 SBO (small bowel obstruction) K56.609 Medical History Medical History Acid reflux Allergic rhinitis Fatigue Goiter Patrick's thyroiditis History of varicose veins Vitamin B12 deficiency Medical History Comments:: Pt. reports siter reacted to anesthesia, N&V Surgical History Surgical History History of removal of ovarian cyst and fallopian tube Tobacco Smoking/Tobacco Use Status: Former Tobacco Use Alcohol Alcohol Intake: current Alcohol intake frequency: a few times a week Alcohol type: hard liquor Substance Use Substance use: Rarely Substance use type: marijuana Details: Pt. reports hasnt used substances in 12 months Vital Signs and Lab Results Vital Signs Most Recent Vital Signs in EMR: Most Recent Vital Signs Temp Pulse Resp BP Pulse Ox 36.7 C 82 16 116/75 100 06/20/21 06:27 06/20/21 06:27 06/20/21 06:27 06/20/21 06:27 06/20/21 06:27 Lab Results Blood Type / Crossmatch: No Data to Display Complete Blood Count: No Data to Display Complete Metabolic Panel: No Data to Display Liver Function Panel: No Data to Display Coagulation Panel: No Data to Display Cardiac Panel: No Data to Display Arterial Blood Gas: No Data to Display Venous Blood Gas: No Data to Display Pancreas Panel: No Data to Display Thyroid Panel: No Data to Display Infectious Disease: Coronavirus (COVID-19)(PCR) Negative (Negative) 06/18/21 08:40 06/18/21 Coronavirus 2019 Source Nasal/Nares 06/18/21 08:40 06/18/21 Blood Cultures: No Data to Display Toxicology Panel: No Data to Display Panel: No Data to Display Anesthesia Assessment and Plan Anesthesia History Personal History: No History of Anesthesia Complications Family History: Other Exercise Tolerance Exercise Tolerance: Metabolic Equivalents>4 Pertinent Negatives Pertinent Negatives: No Symptoms of GERD, No Major Cardiovascular Symptoms or Complaints, No Major Pulmonary Symptoms or Complaints and No History of CVA/TIA Cardiac & Pulmonary Exam Cardiac Exam: Normal S1/S2 Heart Sounds Pulmonary Exam: Clear Bilateral Breath Sounds Implantable Cardiac Device Does patient have a Pacemaker or an ICD?: No Airway Exam Known Difficult Airway: No Mallampati Class: 1 Mouth Opening: Normal (> 3cm) Thyromental Distance: Greater than 3 cm Neck Range of Motion: Full ROM Neck Circumference: Normal Teeth Condition: Normal Dentition Airway Comments: High angle narrow palate ASA Classification ASA Score: ASA 2 Emergency Case?: No NPO Status NPO Status: NPO Clears >2 hours, Solids >8 hours Status Status: Negative HCG Anesthesia Plan Resuscitation Status: Full Code Anesthesia Technique: Spinal Anesthesia Airway Planned: Natural Airway Monitors Used: Standard Monitors
[2021-06-20 07:06] VITALS: BMI 31.7
[2021-06-20] MEDS: Lactated Ringers 1,000 ML 80 ML IV (07:12)
[2021-06-20] MEDS: ceFAZolin 2 GM/50 ML BAG IVPB (07:37)
[2021-06-20] MEDS: Bupivacaine 0.5% Pres-Free 30 ML VIAL (07:45)
[2021-06-20] MEDS: Lidocaine 1% Multi-Dose 50 ML VIAL (07:45)
[2021-06-20 09:05] VITALS: BP 97/68; PULSE 56; RESP 16; TEMP 35.9; O2SAT 100
--- NOTE | 2021-06-20 09:05 | W.PM.DSUDISC ---
Discharge Plan Disposition Patient Disposition: HOME Condition: Good Discharge Details Reason For Visit: right achilles debridement/lengthening; calcaneal Attending Provider: Yoni Perez Primary Care Provider: Sushma Awan Home Meds and New Rx's Prescriptions: Continued ibuprofen 600 MG tablet 600 mg PO Q6H PRN (Reason: Pain) Qty: 20 RF: 0 levothyroxine 125 mcg tablet 125 mcg PO DAILY AM RF: 0 ondansetron 4 mg tablet,disintegrating 4 mg PO PRN PRNRF: 0 oxycodone 5 mg tablet 5 mg PO PRN PRNRF: 0 fexofenadine [Argelia Allergy] 60 mg Tablet 60 mg PO DAILY RF: 0 cyanocobalamin (vitamin B-12) 1,000 mcg Tablet 1,000 mcg PO DAILY RF: 0 omeprazole 20 mg Tablet,Delayed Release (Dr/Ec) 20 mg PO DAILY RF: 0 multivitamin [Daily Multi-Vitamin] Tablet RF: 0 Discharge Instructions Stand Alone Forms: Anesthesia Discharge Inst., Katherine Instructions-DSU, Clemente James (DSU) Equipment/Supplies: Non-Weight Bearing Crutches Activity:: Elevate Remove Dressings/Wound Care:: Do Not Remove Shower/Bathe:: Cover Diet:: Normal Diet Discharge Orders Discharge Orders: Discharge Order (Routine); Ordered 06/20/21 Ordered By: Yoni Perez DS: Diagnosis Discharge Diagnosis (1) Calcaneal spur of right foot: Status: Acute (2) Achilles tendinitis of right lower extremity: Status: Acute
--- NOTE | 2021-06-20 09:07 | W.PM.OP ---
Date of service: 06/20/21 Time of Service: 09:07 Operative Note Operative Note DATE OF PROCEDURE: 06/20/21 PRE-OP DIAGNOSIS: Right Achilles tendinitis, equinus, retrocalcaneal exostosis PROCEDURE: Tendo Achilles lengthening with debridement, retrocalcaneal exostectomy right lower extremity SURGEON: Yoni Perez ANESTHESIA TYPE: Spinal Refer to Anesthesia Record ESTIMATED BLOOD LOSS: 1 PATHOLOGY: none sent TOURNIQUET TIME: 63 COMPLICATIONS: None Patient was transported to: same day Patient's condition: stable Implants: 5 mm Mytec soft tissue anchor Indications: 46-year-old female with pain in the retrocalcaneal region of the right lower extremity which is not responded to palliative care which is now interfering with shoe gear and daily activities. She is opting for surgical intervention. She understands risk and complications of surgery pertaining to the potential for pain, scarring, infection, over or under correction, Achilles tendon rupture, calcaneal fracture and recurrence of original deformity potentially requiring revisional procedures. All questions have been answered. Informed consents been obtained. Procedure Description: Lili was brought to the operative suite where her spinal anesthetic was successfully placed and she was placed into a prone position. Timeout was performed for safe surgery by protocol. The right lower extremity was prepped and draped in the usual sterile podiatric fashion. Attention was directed to the right posterior heel region where a 4 cm incision was made ending just inferior to the retrocalcaneal spur. The incision was placed midline and was opened in controlled depth fashion with hemostasis being acquired by electrocautery as needed. The Achilles tendon was easily visualized and the overlying soft tissues gently retracted medially and laterally. Equinus deformity is noted and a tendo Achilles lengthening was performed the tenotomy's to place laterally along the tendon and 1 medially between the 2 lateral incisions the foot was plantarflexed the Achilles tendon easily lengthened and looked excellent attention was now directed to the distal attachment into the calcaneus this was transversely incised right against the calcaneus just below the exostosis. The Achilles tendon was reflected proximally the tendon itself was actually free of gross calcium deposition within the tendon mass but it was mildly hypertrophic the distal tendon piece was gently debrided reducing some of the hypertrophy with osteotome and mallet the retrocalcaneal spur was resected as was the Horacio's component of the deformity. Rongeur was used to remove all rough and edges and a hand rasp further used to smooth. Finger palpation and visualization revealed good resection of bone. Copious irrigation was performed. We utilized a 5 mm corkscrew Mytec soft tissue anchor placed into the os calcis at the level of the Achilles attachment and the Achilles brought back down onto the bone utilizing the attached suture. The repair was then supplemented with simple interrupted suture 2-0 Vicryl excellent reattachment and strength noted. The subcutaneous layer was then brought together with 3-0 Vicryl the subcuticular layer was brought together with 3-0 Vicryl in a running stitch of 4-0 Monocryl half-inch Steri-Strips were then applied with Mastisol Xeroform gauze fluff compression dressings applied and a well-padded posterior splint applied to the foot being held in mild plantarflexion the tourniquet was released to 63 minutes with vascularity returning immediately Lili left the OR with vital signs stable vascular status intact sharp and sponge counts were correct she will remain nonweightbearing on the right lower extremity and will be followed up by myself in the office next week. Dictated with Katarzyna naturally speaking not reviewed for accuracy
[2021-06-20 09:36] VITALS: BP 94/79; PULSE 63; RESP 16; TEMP 35.9; O2SAT 100
--- NOTE | 2021-06-21 10:55 | W.ANESPOSTOP ---
Postoperative Evaluation Date, Time and Location Date Performed: 06/20/21 Time Performed: 09:55 Patient Location: Day Surgery Unit Vital Signs Most Recent Imported Vital Signs: Most Recent Vital Signs Temp Pulse Resp BP Pulse Ox 35.9 C L 63 16 94/79 L 100 06/20/21 09:36 06/20/21 09:36 06/20/21 09:36 06/20/21 09:36 06/20/21 09:36 Pain Score Most Recent Pain Score: Most Recent Pain Score Pain Level 0 06/20/21 09:36 Assessment Mental Status: Awake (Alert & Oriented to Patient Baseline) Airway and Respiratory Function: Patent airway with normal (patient baseline) respiratory exam Cardiovascular Function: Hemodynamically Stable Hydration Status: Adequately Hydrated Nausea & Vomiting: No Nausea or Vomiting Pain: Pt. Denies Any Pain Peripheral Nerve Block: Patient did not receive a nerve block
== END 2021-06-20 10:30 | disposition home or self-care (01) ==
PROVIDERS: PCP Nurse Practitioner Family; Visit Provider Podiatrist
PROC: (CPT 28119; principal; 2021-06-20 07:30)
DX: M77.31 Calcaneal spur, right foot (principal); M76.61 Achilles tendinitis, right leg
CPT/HCPCS: 28119; 27685; 81025; C1713; J0690; J1100; J1885; J2001; J2250; J2405; J2704

== ENCOUNTER 2022-01-19 18:13 | Outpatient (REF) | payer BC, SELFPAY ==
--- NOTE | 2022-01-19 13:38 | SKI_PTH ---
PATIENT: Lili Persaud LOC: NCN #:[id number] AGE/SX: 46/F ROOM: RE01/19/[address]: Clint Calvert : 1975 BED: DIS: 01/19/2022 SPEC #: [id number] RECD: 01/19/22 18:25 STATUS: YAYO REQ #: [id number] SERGEI: 01/19/22 13:[address]: Clint Calvert DEPT: Surgical Specimen RECD BY: Shayy Kilgore ENTERED: 01/19/22 18:25 SP TYPE: ROGER SAUCEDO DR: DB PAN, [employer] Tissues: 1 - SKIN BIOPSY(SHAVE/PUNCH) Procedures: SKIN LEVEL 4 SPECIAL STAIN 1 Comments: [id number]
[2022-01-19 19:21] LABS: HCT 36.8 % (36.0-46.0); HGB 11.8 g/dL (11.2-15.7); MCH 27.1 pg (27.0-33.0); MCHC 32.1 % (32.0-36.0); MCV 84 fL (80-95); Platelet Count 345 10^3/uL (130-400); RBC 4.36 10^6/uL (3.93-5.22); RDW 13.2 % (11.7-14.6); WBC 6.11 10^3/uL (4.4-10.8)
[2022-01-19 21:28] LABS: ALT 24 U/L (14-59); AST 18 U/L (15-37); Albumin 3.4 g/dL (3.4-5.0); Alkaline Phosphatase 90 U/L (46-116); Anion Gap 11.3 mmol/L (3-11); BUN 13 mg/dL (7-18); Bilirubin, Total 0.2 mg/dL (0.2-1.0); CO2 27.7 mmol/L (21.0-32.0); CREATININE 0.6 mg/dL (0.55-1.02); Calcium 8.7 mg/dL (8.5-10.1); Calculated LDL 92 mg/dL (<100); Chloride 107 mmol/L (98-107); Cholesterol 154 mg/dL (<200); Estimated GFR 112.73 (mL/min/1.73m2); Glucose 90 mg/dL (74-106); HDL Cholesterol 40 mg/dL (40-60); Potassium 3.8 mmol/L (3.5-5.1); Sodium 146 mmol/L (136-145); TSH (W/Ref FT4) 0.89 uIU/mL (0.36-3.74); Total Protein 7.1 g/dL (6.4-8.2); Triglyceride 114 mg/dL (<150); Vitamin B12 1227 pg/mL (193-986)
[2022-01-21 10:28] LABS: Hepatitis C Ab w Rflx HCV PCR Negative (Negative)
[2022-01-21 10:54] LABS: HIV-1/2 Ag & Ab Screen Negative (Negative)
== END 2022-01-19 18:14 | disposition home or self-care (01) ==
LOC: NCHCN 18:13
PROVIDERS: PCP Nurse Practitioner Family; Visit Provider Nurse Practitioner Family
DX: E53.8 Deficiency of other specified B group vitamins (principal); E06.3 Autoimmune thyroiditis; R53.83 Other fatigue; Z11.4 Encounter for screening for human immunodeficiency virus [HIV]; Z11.59 Encounter for screening for other viral diseases; L30.8 Other specified dermatitis; R21 Rash and other nonspecific skin eruption
CPT/HCPCS: 80053; 80061; 85027; 86803; 87389; 82607; 84443; 88305; 88312

== ENCOUNTER → 2022-03-12 16:37 | Outpatient (CLI) | payer BC, SELFPAY ==
--- NOTE | 2022-03-12 16:15 | DI.RAD_ITS ---
Exam(s) XR FOOT LT COMPLETE EXAM: XR FOOT LT COMPLETE CLINICAL HISTORY: ACHILLES TENDINITIS RT LEG-M76.61 ACHILLES TENDINITIS LT LEG-M76.62 TECHNIQUE: COMPARISON: No exams were available for comparison FINDINGS: Three views were obtained. There are moderate enthesophytes of the Achilles and plantar fascia attac hments on the calcaneus. No other significant bony or soft tissue abnormality seen. IMPRESSION: RADIATION DOSE DELIVERED: Total DLP
--- NOTE | 2022-03-12 16:15 | DI.RAD_ITS ---
Exam(s) XR FOOT RT COMPLETE EXAM: XR FOOT RT COMPLETE CLINICAL HISTORY: ACHILLES TENDINITIS RT LEG-M76.61 ACHILLES TENDINITIS LT LEG-M76.62 TECHNIQUE: COMPARISON: CR XR FOOT LT COMPLETE from 03/12/2022 FINDINGS: Three views were obtained. There are moderate enthesophytes of the Achilles and plantar fascia attac hments on the calcaneus. There is a suture anchor and place in the calcaneus. There are mild degene rative changes of the midfoot articulations and mild DJD at the IP joints. No other significant abno rmality seen. IMPRESSION: RADIATION DOSE DELIVERED: Total DLP
== END ==
PROVIDERS: PCP Nurse Practitioner Family; Visit Provider Podiatrist Foot & Ankle Surgery
DX: M76.61 Achilles tendinitis, right leg (principal); M76.62 Achilles tendinitis, left leg
CPT/HCPCS: 73630

== ENCOUNTER 2023-01-29 16:25 | Outpatient (REF) | payer BC, SELFPAY ==
[2023-01-29 17:54] LABS: Abs Immature Grans 0.01 10^3/uL (0.0-0.06); Absolute Basophil Count 0.04 10^3/uL (0.0-0.2); Absolute Eosinophil Count 0.18 10^3/uL (0.0-0.7); Absolute Lymphocyte Count 1.14 10^3/uL (1.2-3.4); Absolute Monocyte Count 0.47 10^3/uL (0.1-0.8); Absolute Neutrophil Count 4.71 10^3/uL (1.2-6.7); Basophils % 0.6; Eosinophils % 2.7; HCT 37.2 % (36.0-46.0); HGB 11.9 g/dL (11.2-15.7); Immature Grans % 0.2; Lymphocytes % 17.4; MCH 27.2 pg (27.0-33.0); MCV 85 fL (80-95); MPV 9.7 fL (8.0-11.0); Monocytes % 7.2; Neutrophils % 71.9; Platelet Count 412 10^3/uL (130-400); RBC 4.37 10^6/uL (3.93-5.22); RDW 12.8 % (11.7-14.6); RDW-SD 39.8 fL; WBC 6.55 10^3/uL (4.4-10.8)
[2023-01-29 18:33] LABS: ALT 15 U/L (14-59); AST 16 U/L (15-37); Albumin 3.4 g/dL (3.4-5.0); Alkaline Phosphatase 86 U/L (46-116); Anion Gap 8.4 mmol/L (3-11); BUN 13 mg/dL (7-18); Bilirubin, Total 0.2 mg/dL (0.2-1.0); CO2 29.6 mmol/L (21.0-32.0); CREATININE 0.8 mg/dL (0.55-1.02); Calcium 8.8 mg/dL (8.5-10.1); Chloride 103 mmol/L (98-107); Estimated GFR 91.97 (mL/min/1.73m2); Glucose 88 mg/dL (74-106); Potassium 3.8 mmol/L (3.5-5.1); Sodium 141 mmol/L (136-145); TSH (W/Ref FT4) 2.91 uIU/mL (0.36-3.74)
== END 2023-01-29 16:26 | disposition home or self-care (01) ==
LOC: NCHCN 16:25
PROVIDERS: PCP Nurse Practitioner Family; Visit Provider Nurse Practitioner Family
DX: R19.7 Diarrhea, unspecified (principal); R10.84 Generalized abdominal pain
CPT/HCPCS: 80053; 84443; 85025

== ENCOUNTER 2023-01-30 08:55 | Outpatient (REF) | payer BC, SELFPAY | END 2023-01-30 08:56 | disposition home or self-care (01) | LOC: NCHCN 08:55 | PROVIDERS: PCP Nurse Practitioner Family; Visit Provider Nurse Practitioner Family | DX: R19.7 Diarrhea, unspecified (principal); R10.84 Generalized abdominal pain | CPT/HCPCS: 83630; 87177 ==

== ENCOUNTER → 2023-02-05 11:29 | Outpatient (CLI) | payer BC, SELFPAY ==
--- NOTE | 2023-02-05 13:55 | DI.RAD_ITS ---
Exam(s) XR FOOT LT COMPLETE EXAM: XR FOOT LT COMPLETE CLINICAL HISTORY: Lt 2nd toe pain,m79.675. TECHNIQUE: 2D digital imaging was performed. Three views. COMPARISON: CR XR FOOT RT COMPLETE from 03/12/2022 FINDINGS: BONES: No acute fracture is present. No bony destructive lesion is seen. Prominent enthesophyte at Achilles insertion on calcaneus. Tiny plantar calcaneal spur. Plantar arch is maintained. JOINTS: No dislocation present. Mild degenerative changes talonavicular joint. SOFT TISSUE: Normal. IMPRESSION: Heel spurs. Mild degenerative changes. DATA REPOSITORY: RADIATION DOSE DELIVERED:
== END ==
PROVIDERS: PCP Nurse Practitioner Family; Visit Provider Podiatrist
DX: M79.675 Pain in left toe(s) (principal)
CPT/HCPCS: 73630

== ENCOUNTER 2023-03-16 09:18 | Day surgery (SDC) | payer BC, SELFPAY ==
--- NOTE | 2023-03-15 16:21 | PDOC.DSDIS_ITS ---
Date of service: 03/16/23 Time of Service: 11:56 Discharge Plan Disposition Patient Disposition: Home Condition: Good Discharge Details Reason For Visit: Colon scope and stomach scope Attending Provider: Sandi Terry Primary Care Provider: DB PAN Home Meds and New Rx's Prescriptions: New sucralfate [Carafate] 1 gram tablet 1 g PO QACHS Qty: 120 0RF Continued pantoprazole [Protonix] 40 mg tablet,delayed release (DR/EC) 40 mg PO DAILY Qty: 30 12RF levothyroxine 125 mcg tablet 125 mcg PO DAILY AM Patient Comments: TAKE ONE TABLET BY MOUTH EVERY DAY fexofenadine [Argelia Allergy] 60 mg Tablet 60 mg PO DAILY cyanocobalamin (vitamin B-12) 1,000 mcg Tablet 1,000 mcg PO DAILY multivitamin [Daily Multi-Vitamin] Tablet 1 tab PO DAILY Discharge Instructions Additional Instructions: DSU Colonoscopy Post-O p Instructions Instructions for Everyone who is given Anesthesia: For your safety, please do the following for the next twenty-four (24) hours: *Do Not operate a motor vehicle (car, truck, motorcycle, etc.) *Do Not drink alcoholic beverages or use any recreational drugs for the first 24 hours or while taking pain medications. The medications in your body may have a reaction that can be dangerous. *Do Not make any important decisions or sign any important papers. Findings: gastritis/ulceration diverticula inflammation in ileum Continue with lifestyle modifications: no alcohol, tobacco products, Aspirin or NSAID's (ibuprofen, Motrin, Naprosyn, aleve, etc), soda pop/any carbonated beverages, caffeine (including tea & chocolate), and acidic foods, (tomatoes, citrus, onions, peppermints) spicy or fried/fatty foods. Do not lie down for 30 minutes after eating, and do not eat 2 hours prior to bedtime. Avoid wearing tight fitting clothing/ belts Follow up: 03/29 at 11am 1. No lifting over 20 pounds or strenuous activity for the first 24 hours after your procedure. After 24 hours there are no restrictions on your activity but you may feel fatigued for a few days. 2. After you arrive home you may have a light meal and return to your normal diet as you can tolerate it without feeling sick to your stomach. 3. You may have a bloated, gaseous feeling in your belly (abdomen) after a colonoscopy. Passing gas and belching will help. Walking or lying down on your left side with your knees flexed may relieve the discomfort. Call the office at [phone] (Office) or [phone] (Hospital) right away if you notice any of the following: a.Vomiting of blood or ?coffee ground stools?. b.Rectal bleeding 1Tbsp, blood clots or continuous bleeding. c.Severe belly (abdominal) pain. d.A hard distended belly (abdomen) and an inability to pass gas. 4. Please don?t expect to have a normal BM (bowel movement) for 2-3 days after your procedure. 5. If there are questions regarding the findings of your procedure, please contact your doctor 6. If you are unable to contact your doctor with a problem, contact the hospital at [phone]. 7. Continue all your regular medications unless directed otherwise. I understand the above instructions and have no questions. Signature of Patient or Adult Escort Name of Responsible Adult Escort Signature of Nurse Date/Time Activity:: See above Diet:: See above Discharge Orders Discharge Orders: Discharge Order (Routine); Ordered 10/24/23 Ordered By: Sandi Terry DS: Diagnosis Discharge Diagnosis (1) Gas bloat syndrome: Status: Acute (2) Abdominal pain, vomiting, and diarrhea: Status: Acute (3) Daily consumption of alcohol: Status: Acute (4) Chronic GERD: Status: Acute (5) Abdominal pain: Status: Acute Asessment and Plan: The patient is seen and examined after their colonoscopy.? The patient has been able to pass gas.? They are not having abdominal pain.? They have been able to tolerate liquids and a snack.? They do not have any nausea or vomiting.? They are not having any chest pain or shortness of breath.??? They are not having any rectal bleeding. Their vital signs have been stable-see nursing notes. We discussed findings during their colonoscopy, and any biopsies that were done/polyps that were removed. The patient will be sent a letter with any biopsy results, and when to repeat the colonoscopy.-see discharge instructions. Patient was given explicit instructions to follow-up regarding colonoscopy-refer to discharge instructions.? We reviewed resumption of medications. Patient verbalized understanding and discharged in stable and satisfactory condition- See nursing notes. (6) Patrick's thyroiditis: (7) Acid reflux:
--- NOTE | 2023-03-15 16:23 | COLE_ITS ---
Date of service: 03/16/23 Time of Service: 11:52 Colonoscopy Report Date of procedure: 03/16/23 Pre-op diagnosis general: Colorectal cancer screening/chronic diarrhea Post-op diagnosis procedure note: other (Terminal ileitis/sigmoid diverticula- mild) Surgeon: Sandi Terry Anesthesia Type: General:No Airway Estimated blood loss (mL): 2 Pathology: other Complications: None Disposition: same day Prep: Miralax/Dulcolax Retraction Time: 21 Procedure Description: After informed consent was obtained the patient was taken to the procedure room and placed in a left decubitous position. Monitors were applied and a time out was done. The patients name, date of , procedure, allergies to medications and metal in their body was reviewed. The patient was then sedated. Once sedated and comfortable a rectal exam was done. External exam was normal. Internal exam revealed a normal sphincter tone and no palpable masses. The scope was then introduced and retrofelexed. No internal hemorrhoids were identified. The scope was then advanced to the cecum without difficulty. The TI and appendiceal orifice were identified. The prep was BBPS 2 in all segments for total of 6. The scope was then slowly retracted over minutes back into the rectum. She has moderate diverticula confined to the sigmoid colon. There is no signs of active bleeding or infection. No polyps are visualized today. The terminal ileum was cannulated. She does have edema/erythema. I am not able to advance the scope any further than the first 2 to 3 cm into the terminal ileum because of the edema.. Biopsies are taken. The rest of the colon mucosa appears normal/pink and healthy with a normal vascular pattern. Biopsies are taken in the cecum, 80/60/40 centimeters and rectum. All specimens are retrieved and no bleeding is noted. The scope was removed and the patient was woken up and taken back to Same day surgery in stable condition. The patient tolerated the procedure well and there were no immediate complications. Follow up: The patient should follow up, path pending, unless they develop changes in bowel habits or other new gastrointestinal complaints.
--- NOTE | 2023-03-15 16:25 | ENDO_ITS ---
Date of service: 03/16/23 Time of Service: 11:00 Endoscopy Report DATE OF PROCEDURE: 03/16/23 PRE-OP DIAGNOSIS: Epigastric pain/GERD POST-OP DIAGNOSIS: other (Duodenitis/erosive gastritis with punctate ulceration) SURGEON: Sandi Terry ANESTHESIA TYPE: General:No Airway ESTIMATED BLOOD LOSS: 2 PATHOLOGY: other COMPLICATIONS: None DISPOSITION: same day PROCEDURE DESCRIPTION: After informed consent was obtained the patient was take to the procedure room and placed in a supine position. Monitors were applied and a time out was done. The patients name, date of , procedure type, allergies to medications and metal in their body was reviewed. A bite block was placed and the patient was sedated. Once sedated and comfortable the gastroscope was advanced through the oropharynx which was grossly normal into the esophagus. The proximal and mid- esophagus do show some changes consistent with concentric rings that can be seen in eosinophilic esophagitis.. Biopsies were taken. In the distal esophagus there was no: esophageal erosions/varices/diverticula or stricture visualized. The scope was advanced into the stomach and through the pylorus into the 3rd portion of the duodenum. The duodenum was noted to be mild duodenitis. Biopsies were done, all specimens are retrieved and no bleeding is noted. There is mild gastritis at the antrum radiating out in a striped fashion. Biopsies are taken. The scope was retracted back into the stomach and biopsies were done to rule out H. pylori. The scope was retroflexed. The upper half of the stomach starting from the greater curvature and radiate radiate up in a bandlike fashion shows severe linear erosions/gastritis and punctate ulceration. There is contact bleeding. Biopsies are taken. There no a hiatal hernia noted. The scope was retracted back into the esophagus and biopsies were done of the GE junction to rule out Antoine's. The Z line was regular. The GE junction was at 35 cm from the lips..
[2023-03-16 09:36] VITALS: BP 124/90; PULSE 73; RESP 16; TEMP 36.2; O2SAT 100
--- NOTE | 2023-03-16 10:02 | ANES.PREOP_ITS ---
General Info Date of Service Date Performed: 03/16/23 Height: 6 ft Weight: 102.7 kg Body Mass Index (BMI): 30.7 Surgical Procedure: Operation Date: 03/16/23 11:20 Proposed Procedure Side Surgeon p Colonoscopy/Gastroscopy Sandi Terry, Meds Allergies and Home Medications Allergies Allergy/AdvReac Type Severity Reaction Status Date / Time No Known Allergies Allergy Unverified 03/15/23 15:07 Home Medication Medication Instructions Recorded levothyroxine 125 mcg tablet 125 mcg PO DAILY AM 10/12/20 cyanocobalamin (vitamin B-12) 1,000 mcg PO DAILY 06/16/21 1,000 mcg tablet fexofenadine 60 mg tablet (Argelia 60 mg PO DAILY 06/16/21 Allergy) multivitamin (Daily Multi-Vitamin 1 tab PO DAILY 06/20/21 tablet) pantoprazole 40 mg tablet,delayed 40 mg PO DAILY #30 tabs 02/15/23 release (Protonix) Current Visit Medications: Current Medications Generic Name Dose Route Start Last Admin Trade Name Lukeq PRN Reason Stop Dose Admin Hyoscyamine Sulfate 0.125 mg 03/16/23 04:20 Hyoscyamine 0.125 Mg Sl/Oral/Chew SL 04/15/23 04:19 DIRECTED PRN Ringer's Solution 1,000 mls @ 80 mls/hr 03/16/23 06:00 IV 04/14/23 23:59 [facility] IV Miscellaneous Supplies 1 each 03/16/23 06:00 Iv Access IV 04/14/23 23:59 DIRECTED LETICIA Ondansetron HCl 4 mg 03/16/23 04:20 Ondansetron 4 Mg/2 Ml Vial IVP 04/15/23 04:19 Q4H PRN PRN Nausea / Vomiting Sodium Chloride 0 ml 03/16/23 06:00 Normal Saline Flush 10 Ml Syr IV 04/14/23 23:59 PRN PRN Sodium Chloride 0 ml 03/16/23 06:00 Normal Saline 10 Ml Vial IJ 04/14/23 23:59 DIRECTED PRN Sterile Water 0 ml 03/16/23 06:00 Water,Injection,Sterile 10 Ml Vial IJ 04/14/23 23:59 DIRECTED PRN PFSH Active Problems Active Problems: Problem Status Onset Code Gas bloat syndrome K92.89 Abdominal pain, vomiting, and diarrhea R10.9, R11.10, R19.7 Daily consumption of alcohol Z78.9 Chronic GERD K21.9 Rash, skin R21 Eczema L30.9 Diarrhea R19.7 Abdominal pain R10.9 Calcaneal spur of right foot M77.31 Achilles tendinitis of right lower extremity M76.61 Achilles tendinitis of both lower extremities M76.61, M76.62 Hammertoe of left foot M20.42 Corns and callosities L84 Tinea pedis B35.3 Medical History Medical History Acid reflux Allergic rhinitis Fatigue Goiter Patrick's thyroiditis History of varicose veins Vitamin B12 deficiency Medical History Comments:: Pt. reports siter reacted to anesthesia, N&V Surgical History Surgical History History of removal of ovarian cyst and fallopian tube Tobacco Smoking/Tobacco Use Status: Former Tobacco Use Alcohol Alcohol Intake: current Alcohol intake frequency: a few times a week Alcohol type: hard liquor Substance Use Substance use: Rarely Substance use type: marijuana Vital Signs and Lab Results Vital Signs Most Recent Vital Signs in EMR: Most Recent Vital Signs Temp Pulse Resp BP Pulse Ox 36.2 C L 73 16 124/90 100 03/16/23 09:36 03/16/23 09:36 03/16/23 09:36 03/16/23 09:36 03/16/23 09:36 Lab Results Blood Type / Crossmatch: No Data to Display Complete Blood Count: No Data to Display Complete Metabolic Panel: No Data to Display Liver Function Panel: No Data to Display Coagulation Panel: No Data to Display Cardiac Panel: No Data to Display Arterial Blood Gas: No Data to Display Venous Blood Gas: No Data to Display Pancreas Panel: No Data to Display Thyroid Panel: No Data to Display Infectious Disease: No Data to Display Blood Cultures: No Data to Display Toxicology Panel: No Data to Display Panel: No Data to Display Imaging and Studies Imaging and Studies Study information below may be from another EMR and interpreted by another provider. Please see original notes in EMR for more complete details. EKG Summary: Conclusion Sinus rhythm...normal P axis, V-rate 60- 99 Nonspecific intraventricular conduction delay...QRSd >115mS, not LBBB/RBBB Physician: Rate 90, sinus rhythm, no significant ST elevation or depression. No T wave inversion except for in lead III. No STEMI. I have reviewed and I agree with the emergency room physician's ECG interpretation. Electronically signed by: <Electronically signed by Castillo Carty M.D. in [place]> 10/14/20 0951 Cosigned by: 10/12/20 Anesthesia Assessment and Plan Anesthesia History Personal History: No History of Anesthesia Complications Family History: No Family History of Anesthesia Complications Exercise Tolerance Exercise Tolerance: Metabolic Equivalents>4 Pertinent Negatives Pertinent Negatives: No Major Cardiovascular Symptoms or Complaints and No Major Pulmonary Symptoms or Complaints Cardiac & Pulmonary Exam Cardiac Exam: Normal S1/S2 Heart Sounds Pulmonary Exam: Clear Bilateral Breath Sounds Implantable Cardiac Device Does patient have a Pacemaker or an ICD?: No Airway Exam Known Difficult Airway: No Mallampati Class: 1 Mouth Opening: Normal (> 3cm) Thyromental Distance: Greater than 3 cm Neck Range of Motion: Full ROM and Other (prominent chin) Neck Circumference: Normal Teeth Condition: Normal Dentition Airway Comments: High angle narrow palate ASA Classification ASA Score: ASA 2 Emergency Case?: No NPO Status NPO Status: NPO Clears >2 hours, Solids >8 hours Status Status: Negative HCG Anesthesia Plan Resuscitation Status: Full Code Anesthesia Technique: General Anesthesia Airway Planned: Natural Airway Monitors Used: Standard Monitors
[2023-03-16] MEDS: Lactated Ringers 1,000 ML 80 ML IV (10:35)
[2023-03-16 10:36] VITALS: BMI 30.7
--- NOTE | 2023-03-16 10:39 | W.ANESVAS ---
Peripheral IV Placement Date Performed: 03/16/23 Procedure Time: 10:30 Requesting Provider: Sandi Terry Procedure Location: Day Surgery Unit Sedation Given (Indicate Dose Given): No Sedation given Patient Mental Status: Awake Laterality: Left Insertion Site: Antecubital Size & Type: 20 ga. Dressing: IV Dressing Placed, Tegaderm Applied and Statlock Applied Ultrasound: Sterile probe cover and gel used Ultrasound Image Saved?: No Number of Attempts (See previous attempts in note section): 1 Procedure Tolerated: No Complications Procedure Outcome: Successful Performed By: Екатерина Calvert
--- NOTE | 2023-03-16 10:53 | BOWEL_PTH ---
PATIENT: Lili Persaud LOC: [facility] U#:[id number] AGE/SX: 47/F ROOM: RE03/16/[address]: Sandi Terry : 1975 BED: DIS: 03/16/2023 SPEC #: [id number] RECD: 03/16/23 12:45 STATUS: YAYO RE #: [id number] SERGEI: 03/16/23 10:[address]: Sandi Terry DEPT: Surgical Specimen RECD BY: Shayy Kilgore ENTERED: 03/16/23 12:48 SP TYPE: Bowel OTHR DR: DB PAN, DNA ANALYST Tissues: 1 - BIOPSY BOWEL 2 - BIOPSY BOWEL 3 - STOMACH BIOPSY 4 - STOMACH BIOPSY 5 - STOMACH BIOPSY 6 - ESOPHAGUS BIOPSY 7 - ESOPHAGUS BIOPSY 8 - ESOPHAGUS BIOPSY 9 - BIOPSY BOWEL 10 - BIOPSY BOWEL 11 - BIOPSY BOWEL 12 - BIOPSY BOWEL 13 - BIOPSY BOWEL 14 - BIOPSY BOWEL Procedures: GROSS AND MICRO LEVEL 4 IMMUNOPEROXIDASE STAIN Comments: [id number]
[2023-03-16 11:44] VITALS: BP 117/72; PULSE 71; RESP 16; TEMP 36.1; O2SAT 97
--- NOTE | 2023-03-16 12:03 | W.ANESPOSTOP ---
Postoperative Evaluation Date, Time and Location Date Performed: 03/16/23 Time Performed: 12:03 Patient Location: Day Surgery Unit Vital Signs Most Recent Imported Vital Signs: Most Recent Vital Signs Temp Pulse Resp BP Pulse Ox 36.1 C L 71 16 117/72 97 03/16/23 11:44 03/16/23 11:44 03/16/23 11:44 03/16/23 11:44 03/16/23 11:44 Pain Score Most Recent Pain Score: Most Recent Pain Score Pain Level 0 03/16/23 09:36 Assessment Mental Status: Awake (Alert & Oriented to Patient Baseline) Airway and Respiratory Function: Patent airway with normal (patient baseline) respiratory exam Cardiovascular Function: Hemodynamically Stable Hydration Status: Adequately Hydrated Nausea & Vomiting: No Nausea or Vomiting Pain: Pt. Denies Any Pain Peripheral Nerve Block: Patient did not receive a nerve block Postoperative Comments:: Positive flatus, feels gassy
[2023-03-16 12:21] VITALS: BP 122/88; PULSE 70; RESP 16; TEMP 36.5; O2SAT 100
[2023-03-16] MEDS: Sucralfate 1 GM TAB PO (12:26)
[2023-03-16 12:47] LABS: C-Reactive Protein 0.18 mg/dL (0.0-0.3)
[2023-03-17 14:21] LABS: ANCA Interpretation Negative (Negative)
== END 2023-03-16 13:12 | disposition home or self-care (01) ==
LOC: SUR 09:19
PROVIDERS: PCP Nurse Practitioner Family; Visit Provider Surgery
PROC: (CPT 45380; principal; 2023-03-16 11:15)
DX: K92.89 Other specified diseases of the digestive system (principal); K21.9 Gastro-esophageal reflux disease without esophagitis; R10.9 Unspecified abdominal pain; K29.80 Duodenitis without bleeding; K22.89 Other specified disease of esophagus
CPT/HCPCS: 45380; 43239; 36410; 36415; 81025; 86255; 88305; 86140; 88361; J2405

== ENCOUNTER 2023-04-01 12:07 | Outpatient (REF) | payer BC, SELFPAY | END 2023-04-01 12:08 | disposition home or self-care (01) | LOC: LBN 12:07 | PROVIDERS: PCP Nurse Practitioner Family; Visit Provider Surgery | DX: A07.8 Other specified protozoal intestinal diseases (principal) | CPT/HCPCS: 87177 ==

== ENCOUNTER 2023-05-02 10:12 | Emergency (ER) | payer BC, SELFPAY ==
[2023-05-02 10:15] VITALS: BP 138/83; PULSE 89; RESP 15; TEMP 36.6; O2SAT 100
--- NOTE | 2023-05-02 10:26 | W.ED.GENAD ---
Discharge Plan Disposition Patient Disposition: Home Condition: Stable Discharge Details Clinical Impression: Terminal ileitis Primary Care Provider: Vanna Garcia ED Provider: Chano Lemon Home Meds and New Rx's Prescriptions: Continued pantoprazole [Protonix] 40 mg tablet,delayed release (DR/EC) 40 mg PO DAILY Qty: 30 12RF levothyroxine 125 mcg tablet 125 mcg PO DAILY AM Patient Comments: TAKE ONE TABLET BY MOUTH EVERY DAY fexofenadine [Argelia Allergy] 60 mg Tablet 60 mg PO DAILY cyanocobalamin (vitamin B-12) 1,000 mcg Tablet 1,000 mcg PO DAILY multivitamin [Daily Multi-Vitamin] Tablet 1 tab PO DAILY Discharge Instructions Instructions: Enteritis (ED), Capsule Endoscopy (DC) Additional Instructions: You were seen in the emergency department for your abdominal pain acute on chronic. Your CT scan shows some adenopathy and ileitis at the end or terminal portion of your ileum. This is possibly a secondary complication from your parasitic infection that was treated, you may need a capsule endoscopy from a plate cleaner. You may talk with your doctor about an atypical presentation of an autoimmune enteritis or colitis like Crohn's disease and a trial of steroids for relief. Otherwise we found no acute emergent concerns on your laboratory work or CT scan. Please try to add probiotics to your diet. Referrals: Vanna Garcia [Primary Care Provider] - Medical Decision Making This dictation utilizes [id number] dictation software and may contain unedited grammatical errors. 48 y/o F presents to ED today with a chief complaint of acute on chronic abdominal pain. Onset and characteristics include sudden onset around 0830 this morning, started umbilical now most focal in the lower abdomen. Patients' medical history: [ ]. Family and social history: [ ]. Pertinent exam findings / vital signs include LUNGS/CHEST: Lungs CTA bilaterally- no rhonchi/rales/wheezes diffusely, non-labored respirations, normal A/P diameter, symmetrical expansion, no chest wall deformity HEART (CV/PV): Regular rate and rhythm without murmur, no peripheral edema, no JVD. ABDOMEN: Soft, non-distended, no guarding, diffuse exquisite abdominal tenderness, most focal in the lower abdominal, epigastric tenderness less so, psoas positive.. Differential / pathologies of concern include SBO, Constipation, Diverticulitis, Ovarian Cyst, NOT sepsis, Gastritis, Chronic Abdominal Pain. Diagnostic studies of: -CBC, CMP, Lactate, Lipase, CRP/ESR, Mg++, Trop I, Procalcitonin, CT ABD/Pelvis w IV & Oral Contrast, D-dimer. -Lactate mildly elevated 1.6, likely poor PO intake. -WBCs 11 -D-dimer 646, but do not suspect mesenteric ischemia, consulted with Gen Surg who are well aware of the patients history -UA trace ketones -K+ 3.4 > correct with normal PO intake -CT shows meserteric adenitis and terminal ileitis without cobblestoning - recommend follow-up with GI, probiotics etc Interventions of: -0.5mg hydromorphone, 4mg IV zofran, 1L IVF, further analgesics with 1g IV Tylenol & 1mg IV hydromorphone. ED Course/Assessment/Plan: 48-year-old female with acute on chronic abdominal pain presents with severe lower central abdominal pain that feels like gas pain, her labs are unremarkable save for some mild dehydration, I do not suspect mesenteric ischemia as the patient has been having bowel movements and has diarrhea for the past month, she is not dumping her gut and not actively vomiting, her lipase was normal, her lactate was mildly elevated in the setting of dehydration with ketones in the urine, I discussed her case informally with one of our surgeons Dr. Clark who is known to the patient. CT shows terminal ileitis, I recommend the patient follow-up with her primary care provider for possible trial of steroids to see if this could be an atypical presentation of Crohn's disease or other autoimmune pathology. Recommend probiotics and trial of laxative if there is a moderate stool burden seen on my interpretation of CT. Findings not consistent with SBO, diverticulitis, colitis, GI bleeding, ovarian pathology, or other acute emergent abdominal pathology. Disposition of Terminal ileitis. Patient verbalized understanding of the plan and return to ED criteria and engaged in shared decision making. Medical Records Medical records reviewed: Yes I reviewed the patient's medical records. Imaging Data Radiologic Study: Imaging: CT Scan My impression: moderate to large stool burden Radiologist's impression: Exam: CT Abdomen And Pelvis With Contrast Exam date and time: 05/02/2023 2:36 PM Age: 48 years old Clinical indication: Other: 100; Additional info: Abdominal pain TECHNIQUE: Imaging protocol: Computed tomography of the abdomen and pelvis with contrast. Radiation optimization: All CT scans at this facility use at least one of these dose optimization techniques: automated exposure control; mA and/or kV adjustment per patient size (includes targeted exams where dose is matched to clinical indication); or iterative reconstruction. Contrast material: OMNIPAQUE 350; Contrast volume: 100 ml; Contrast route: INTRAVENOUS (IV); COMPARISON: CT ABDOMEN PELVIS CTA 10/16/2020 4:27 PM FINDINGS: Liver: Normal. No mass. Gallbladder and bile ducts: Normal. No calcified stones. No ductal dilation. Pancreas: Normal. No ductal dilation. Spleen: Normal. No splenomegaly. Adrenal glands: Normal. No mass. Kidneys and ureters: There is a simple appearing cyst in the left kidney. No follow-up necessary. The right kidney is unremarkable. Stomach and bowel: There is terminal ileal wall thickening. No bowel obstruction. Appendix: No evidence of appendicitis. Intraperitoneal space: There is trace free fluid in the dependent pelvis. No free air. Vasculature: Unremarkable. No abdominal aortic aneurysm. Lymph nodes: There is a 1.3 cm long axis right lower quadrant mesenteric node on series 4, image 69. There are additional adjacent enlarged mesenteric nodes. Urinary bladder: Unremarkable as visualized. Reproductive: Unremarkable as visualized. Bones/joints: Unremarkable. No acute fracture. Soft tissues: Unremarkable. IMPRESSION: 1. Terminal ileitis. Trace free fluid in the pelvis. 2. Mesenteric adenopathy. Dictated and Authenticated by: Zaida Cruz MD. Ordering:CYRUS Madden MD Lab Data Lab results reviewed: Yes I reviewed the patient's lab results. Labs: Laboratory Tests Range/Units 05/02/23 05/02/23 10:52 13:05 WBC (4.4-10.8) 10^3/uL 11.06 H RBC (3.93-5.22) 10^6/uL 5.34 H Hgb (11.2-15.7) g/dL 14.2 Hct (36.0-46.0) % 44.1 MCV (80-95) fL 83 MCH (27.0-33.0) pg 26.6 L MCHC (32.0-36.0) % 32.2 RDW (11.7-14.6) % 13.8 Plt Count (130-400) 10^3/uL 348 MPV (8.0-11.0) fL 9.4 Immature Gran % 0.3 Neutrophils % 84.9 Lymphocytes % 9.3 Monocytes % 3.5 Eosinophils % 1.5 Basophils % 0.5 Nucleated RBC % (0.0-0.3) % 0.0 Absolute Neutrophils (1.2-6.7) 10^3/uL 9.39 H Absolute Lymphocytes (1.2-3.4) 10^3/uL 1.03 L Absolute Monocytes (0.1-0.8) 10^3/uL 0.39 Absolute Eosinophils (0.0-0.7) 10^3/uL 0.17 Absolute Basophils (0.0-0.2) 10^3/uL 0.06 ESR (0-20) mm/hr 19 D-Dimer (<500) ng/mlFEU 646 H VBG Lactate (0.6-1.4) mmol/L 1.6 H Sodium (136-145) mmol/L 141 Potassium (3.5-5.1) mmol/L 3.4 L Chloride (98-107) mmol/L 103 Carbon Dioxide (21.0-32.0) mmol/L 26.3 Anion Gap (3-11) mmol/L 11.7 H BUN (7-18) mg/dL 11 Creatinine (0.55-1.02) mg/dL 0.9 Est GFR (CKD-EPI 2020) (mL/min/1.73m2) 79.35 Glucose (74-106) mg/dL 107 H Calcium (8.5-10.1) mg/dL 9.1 Magnesium (1.8-2.4) mg/dL 1.9 Total Bilirubin (0.2-1.0) mg/dL 0.3 AST (15-37) U/L 18 ALT (14-59) U/L 22 Alkaline Phosphatase (46-116) U/L 90 Troponin I (<or=60) ng/L < 50 C-Reactive Protein (0.0-0.3) mg/dL 0.32 H Total Protein (6.4-8.2) g/dL 9.0 H Albumin (3.4-5.0) g/dL 3.8 Lipase (16-77) U/L 47 Procalcitonin ng/mL < 0.1 Urine Color (Yellow) Yellow Urine Clarity (Clear) Clear Urine pH (5-8) 5.5 Ur Specific [place] (1.005-1.025) 1.025 Urine Protein (Negative) mg/dL Negative Urine Ketones (Negative) mg/dL Trace H Urine Blood (Negative) Negative Urine Nitrite (Negative) Negative Urine Bilirubin (Negative) Negative Urine Urobilinogen (Up to 0.2) mg/dL 0.2 Ur Leukocyte Esterase (Negative) Negative Urine Glucose (Negative) mg/dL Negative HPI General Date/Time Provider Initiated Documentation: 05/02/23 10:15. HPI Narrative: 48 year-old female presents to ED today by POV/ambulating with a chief complaint of sudden onset severe abdominal pain with onset around 0830 today- patient was having a bowel movement, and felt this pain start shortly after- denies passing gas since. States it feels like really bad gas pain. [employer] has a history of chronic abdominal issues, recent treatment for a parasitic infection, history of surgical removal of ovarian cyst, severe gastritis history. Quality described as sharp abdominal pain, no radiation to vomiting, black/bloody stool, dysuria, hematuria, fever, shortness of breath, chest pain. Severity is described as 9/10. Palliating factors include nothing specific attempted. Provoking factors include nothing specific.. Patient not anticoagulated. Related Data Home Medications Medication Instructions Recorded Confirmed levothyroxine 125 mcg tablet 125 mcg PO DAILY AM 10/12/20 05/02/23 cyanocobalamin (vitamin B-12) 1,000 mcg PO DAILY 06/16/21 05/02/23 1,000 mcg tablet fexofenadine 60 mg tablet (Argelia 60 mg PO DAILY 06/16/21 05/02/23 Allergy) multivitamin (Daily Multi-Vitamin 1 tab PO DAILY 06/20/21 05/02/23 tablet) pantoprazole 40 mg tablet,delayed 40 mg PO DAILY #30 tabs 02/15/23 05/02/23 release (Protonix) Previous Rx's Medication Instructions Recorded pantoprazole 40 mg tablet,delayed 40 mg PO DAILY #30 tabs 02/15/23 release (Protonix) Allergies Allergy/AdvReac Type Severity Reaction Status Date / Time No Known Allergies Allergy Unverified 05/02/23 10:18 General Stated Complaint: Abd Prob OKSANA: 3 Review of Systems All systems reviewed & are unremarkable except as noted in HPI and below PFSH All Active Problems (Updated 05/02/23 @ 15:49 by LEONCIO Vasquez) Terminal ileitis (Acute) Thyroid nodule (Acute) Blastocystis hominis (Acute) Gas bloat syndrome (Acute) Daily consumption of alcohol (Acute) Chronic GERD (Acute) Rash, skin (Acute) Eczema (Acute) Calcaneal spur of right foot (Acute) Achilles tendinitis of right lower extremity (Acute) Achilles tendinitis of both lower extremities (Acute) Hammertoe of left foot (Acute) Corns and callosities (Acute) Tinea pedis (Acute) Medical History (Updated 05/02/23 @ 15:49 by LEONCIO Vasquez) Goiter Fatigue History of varicose veins Patrick's thyroiditis Acid reflux Allergic rhinitis Vitamin B12 deficiency Surgical History (Updated 04/29/23 @ 10:09 by Sandi Terry DO) History of colonoscopy (~02/2023) Biopsies taken / terminal ileum cannulated repeat in 2032 History of esophagogastroduodenoscopy (~02/2023) Biopsies taken History of removal of ovarian cyst and fallopian tube Social History Smoking/Tobacco Use Status: Former Tobacco Use Quit Date: 05/24/16 Smoking risk assessment performed?: Yes Alcohol Intake: current Alcohol Intake frequency: a few times a week Alcohol type: hard liquor Drug use: Rarely Substance use type: marijuana Housing: house Do you feel safe at home: Yes Do you feel safe in your relationship?: Yes Exam Narrative Exam Narrative: GENERAL APPEARANCE: Well-nourished, non-toxic, awake and alert, atraumatic, no acute distress. SKIN: Warm, pink, dry, intact, without rashes/lesions/ulcerations. HEAD: Normocephalic, atraumatic, normal hair distribution for gender/age. EYES: Pupils PERRLA, EOMs intact without nystagmus, normal conjunctiva, no exudates on lids/lashes. ENT: Nares patent, no circumoral cyanosis, no facial swelling NECK: Supple, trachea midline, painless cervical ROM. LUNGS/CHEST: Lungs CTA bilaterally- no rhonchi/rales/wheezes diffusely, non-labored respirations, normal A/P diameter, symmetrical expansion, no chest wall deformity HEART (CV/PV): Regular rate and rhythm without murmur, no peripheral edema, no JVD. ABDOMEN: Soft, non-distended, no guarding, diffuse exquisite abdominal tenderness, most focal in the lower abdominal, epigastric tenderness less so, psoas positive. MSK: Normal ROM, no swelling/deformity to bilateral UEs or LEs, moving all extremities without weakness, no cyanosis, spine midline without tenderness, normal curvature. NEURO: Mental Status AAOx4 - alert to person, place, time, events No facial droop, no forehead involvement. Motor: No focal weakness - strength 5/5 in bilateral UEs and LEs, proximal and distal, symmetric. Sensory: sensation intact to light touch globally. Gait normal: patient ambulated without ataxia into ED room. PSYCH: euthymic, cooperative, pleasant, appropriate speech Course 05/02/23 10:34 Famotidine [Pepcid Injection] 20 mg Normal Saline [Saline 100ml Bag] 100 ml IVPB STAT HYDROmorphone [Dilaudid Injection] 0.5 mg IVP STAT STA Lactated Ringers 1,000 ml IV BOLUS Ondansetron [Zofran Injection] 4 mg IVP STAT STA 05/02/23 10:52 CRP [C-Reactive Protein] Stat Cardiac Troponin I Stat Comprehensive Metabolic Panel Stat Lactate Stat Lipase Stat Magnesium Stat Procalcitonin Stat D-Dimer [COAG] Stat Complete Blood Count w/Diff [HEMO] Stat ESR [HEMO] Stat 05/02/23 11:45 CT abdomen & pelvis w [CT] Stat 05/02/23 12:54 Acetaminophen [Ofirmev] 1,000 mg in 100 ml IVPB ONCE HYDROmorphone [Dilaudid Injection] 1 mg IVP NOW ONE 05/02/23 13:05 Urinalysis [URIN] Stat 05/02/23 15:00 Iohexol [Omnipaque 350] 100 ml IJ DIRECTED Iohexol [Omnipaque 350] 50 ml IJ DIRECTED Normal Saline - Diluent [Saline 50 ml diluent vial] 50 ml IV .FOR DI USE 05/02/23 15:15 Breeza Beverage [Breeza Tropical Fruit Flavor] 900 ml PO DIRECTED Vital Signs Vital signs: Vital Signs Temperature 36.6 C 05/02/23 10:15 Pulse 89 05/02/23 10:15 Respiratory Rate 15 05/02/23 10:15 Blood Pressure 138/83 05/02/23 10:15 Pulse Oximetry 100 05/02/23 10:15 Temperature 36.6 C 05/02/23 10:15 Temperature Source Temporal Artery Scan 05/02/23 10:15 Pulse 89 05/02/23 10:15 Respiratory Rate 15 05/02/23 10:15 Respiratory Effort Normal 05/02/23 10:17 Blood Pressure 138/83 05/02/23 10:15 Blood Pressure Position Sitting 05/02/23 10:15 Pulse Oximetry 100 05/02/23 10:15 Oxygen Delivery Method Room Air 05/02/23 10:15 Oxygen Flow Rate 0 05/02/23 10:15 Pain Level 8 05/02/23 10:18
[2023-05-02] MEDS: Lactated Ringers 1,000 ML 1000 ML IV (10:56)
[2023-05-02] MEDS: Ondansetron 4 MG/2 ML VIAL IVP (10:57)
[2023-05-02] MEDS: HYDROmorphone 2 MG/ML SYR 0.5 MG IVP (10:58)
[2023-05-02] MEDS: FAMOTIDINE 20 MG in Normal Saline 100 ML 400 MG IVPB (11:00)
[2023-05-02 11:02] LABS: Lactate 1.6 mmol/L (0.6-1.4)
[2023-05-02 11:03] LABS: Abs Immature Grans 0.03 10^3/uL (0.0-0.06); Absolute Eosinophil Count 0.17 10^3/uL (0.0-0.7); Absolute Lymphocyte Count 1.03 10^3/uL (1.2-3.4); Absolute Monocyte Count 0.39 10^3/uL (0.1-0.8); Absolute Neutrophil Count 9.39 10^3/uL (1.2-6.7); Basophils % 0.5; Eosinophils % 1.5; HCT 44.1 % (36.0-46.0); HGB 14.2 g/dL (11.2-15.7); Immature Grans % 0.3; Lymphocytes % 9.3; MCH 26.6 pg (27.0-33.0); MCHC 32.2 % (32.0-36.0); MCV 83 fL (80-95); MPV 9.4 fL (8.0-11.0); Monocytes % 3.5; Neutrophils % 84.9; Platelet Count 348 10^3/uL (130-400); RBC 5.34 10^6/uL (3.93-5.22); RDW 13.8 % (11.7-14.6); RDW-SD 41.4 fL; WBC 11.06 10^3/uL (4.4-10.8)
[2023-05-02 11:06] LABS: ESR 19 mm/hr (0-20)
[2023-05-02 11:12] LABS: Absolute Basophil Count 0.06 10^3/uL (0.0-0.2)
[2023-05-02 11:23] LABS: ALT 22 U/L (14-59); AST 18 U/L (15-37); Albumin 3.8 g/dL (3.4-5.0); Alkaline Phosphatase 90 U/L (46-116); Anion Gap 11.7 mmol/L (3-11); BUN 11 mg/dL (7-18); Bilirubin, Total 0.3 mg/dL (0.2-1.0); C-Reactive Protein 0.32 mg/dL (0.0-0.3); CO2 26.3 mmol/L (21.0-32.0); CREATININE 0.9 mg/dL (0.55-1.02); Calcium 9.1 mg/dL (8.5-10.1); Chloride 103 mmol/L (98-107); Estimated GFR 79.35 (mL/min/1.73m2); Glucose 107 mg/dL (74-106); Lipase 47 U/L (16-77); Magnesium 1.9 mg/dL (1.8-2.4); Potassium 3.4 mmol/L (3.5-5.1); Sodium 141 mmol/L (136-145); Troponin I < 50 ng/L (<or=60)
[2023-05-02 11:33] LABS: D-Dimer 646 ng/mlFEU (<500)
[2023-05-02 11:38] LABS: Procalcitonin < 0.1 ng/mL
--- NOTE | 2023-05-02 11:45 | DI.CT_ITS ---
Exam(s) CT ABDOMEN PELVIS W EXAM: CT ABDOMEN PELVIS W CLINICAL HISTORY: abdominal pain. TECHNIQUE: Imaging Protocol: Axial computed tomography images with coronal and sagittal reformatted images were created and reviewed CONTRAST MATERIAL: Intravenous: Omnipaque 350 Contrast volume:100 ml Oral: Yes COMPARISON: CT CT ABDOMEN PELVIS CTA from 10/16/2020 FINDINGS: ABDOMEN and PELVIS: Lung Bases: No acute findings. Liver: Mildly enlarged. Hepatic steatosis. No measurable mass. Gallbladder and biliary tract: No radiodense calculus or dilation. Pancreas: Normal density. No abnormal calcifications or inflammatory process. No evidence of mass. Spleen: Normal. Kidneys: Normal size, contour and axis. No radiodense stones. No obstructive uropathy. No suspicious masses seen. Adrenal glands: No masses seen. Vasculature: Abdominal aorta non-dilated. Soft tissues: Unremarkable. Bladder: No gross wall thickening. No calculi.No focal mass. Bowel: Administered oral contrast is seen in stomach through proximal jejunum. Contrast is not yet e xtent 2 distal jejunum in colon. 2 diverticula of the duodenum. No obstruction. Abnormal wall thic kening of the terminal ileum. Appendix normal. Peritoneal cavity: Small amount of free fluid in the low pelvis. No focal collection. Stranding in the right lower quadrant mesentery.. Bones: Unremarkable for age. Reproductive organs: Within normal limits. Lymph nodes: Mildly enlarged right lower quadrant lymph nodes, likely reactive. IMPRESSION:: inflammation of the terminal ileum and adjacent reactive enlarged lymph nodes. Small a mount of pelvic fluid. RADIATION DOSE DELIVERED: Total DLP DATA REPOSITORY: All CT scans at this facility are submitted to the National Radiology Data Registry (NRDR) Dose Index Registry (DIR) with the [employer] (A[employer]). RADIATION OPTIMIZATION: All CT scans at this facility use at least one of these dose optimization te chniques: automated exposure control; mA and/or kV adjustment per patient size (includes targeted exa ms where dose is matched to clinical indication); or iterative reconstruction.
[2023-05-02] MEDS: HYDROmorphone 2 MG/ML SYR 1 MG IVP (13:10)
[2023-05-02] MEDS: ACETAMINOPHEN 1,000 MG/100 ML BTL 400 MG IVPB (13:13)
[2023-05-02 13:20] LABS: Bilirubin Negative (Negative); Blood Negative (Negative); Clarity Clear (Clear); Glucose Negative (Negative); Ketones Trace mg/dL (Negative); Leukocyte Esterase Negative (Negative); Nitrite Negative (Negative); Specific Gravity 1.025 (1.005-1.025); Urobilinogen 0.2 mg/dL (Up to 0.2); pH 5.5 (5-8)
[2023-05-02 14:16] VITALS: BP 112/69; PULSE 81; TEMP 36.4; O2SAT 99
[2023-05-02] MEDS: Omnipaque 350 MG/ML 100 ML BTL IJ (14:53)
[2023-05-02] MEDS: Normal Saline - Diluent 50 ML VIAL IV (14:57)
[2023-05-02] MEDS: Breeza Beverage 473 ML BTL 900 ML PO (15:06)
--- NOTE | 2023-05-02 15:35 | DI.VRAD_ITS ---
PROCEDURE INFORMATION: Exam: CT Abdomen And Pelvis With Contrast Exam date and time: 05/02/2023 2:36 PM Age: 48 years old Clinical indication: Other: 100; Additional info: Abdominal pain TECHNIQUE: Imaging protocol: Computed tomography of the abdomen and pelvis with contrast. Radiation optimization: All CT scans at this facility use at least one of these dose optimization techniques: automated exposure control; mA and/or kV adjustment per patient size (includes targeted exams where dose is matched to clinical indication); or iterative reconstruction. Contrast material: OMNIPAQUE 350; Contrast volume: 100 ml; Contrast route: INTRAVENOUS (IV); COMPARISON: CT ABDOMEN PELVIS CTA 10/16/2020 4:27 PM FINDINGS: Liver: Normal. No mass. Gallbladder and bile ducts: Normal. No calcified stones. No ductal dilation. Pancreas: Normal. No ductal dilation. Spleen: Normal. No splenomegaly. Adrenal glands: Normal. No mass. Kidneys and ureters: There is a simple appearing cyst in the left kidney. No follow-up necessary. The right kidney is unremarkable. Stomach and bowel: There is terminal ileal wall thickening. No bowel obstruction. Appendix: No evidence of appendicitis. Intraperitoneal space: There is trace free fluid in the dependent pelvis. No free air. Vasculature: Unremarkable. No abdominal aortic aneurysm. Lymph nodes: There is a 1.3 cm long axis right lower quadrant mesenteric node on series 4, image 69. There are additional adjacent enlarged mesenteric nodes. Urinary bladder: Unremarkable as visualized. Reproductive: Unremarkable as visualized. Bones/joints: Unremarkable. No acute fracture. Soft tissues: Unremarkable. IMPRESSION: 1. Terminal ileitis. Trace free fluid in the pelvis. 2. Mesenteric adenopathy. Dictated and Authenticated by: Zaida Cruz MD. Ordering:CYRUS Maddne MD
== END 2023-05-02 16:03 | disposition home or self-care (01) ==
PROVIDERS: Emergency Provider Physician Assistant; PCP Nurse Practitioner Family
DX: K50.00 Crohn's disease of small intestine without complications (principal); E06.3 Autoimmune thyroiditis; Z87.891 Personal history of nicotine dependence
CPT/HCPCS: 80053; 83690; 84145; 85652; 96361; 96374; 96375; 96376; 99285; 74177; 81003; 83605; 83735; 84484; 85025; 85379; 86140; 99284; J0131; J1170; J2405; J3490

== ENCOUNTER 2023-05-29 07:58 | Outpatient (REF) | payer OTHER, SELFPAY ==
[2023-05-30 10:53] LABS: Campylobacter PCR Negative (Negative); Salmonella PCR Negative (Negative); Shiga Toxin PCR Negative (Negative); Shigella/Enteroinvasive Ecoli Negative (Negative)
[2023-06-01 11:53] LABS: Helicobacter pylori Ag, Feces Negative (Negative)
[2023-06-02 18:15] LABS: Calprotectin 482 mcg/g
== END 2023-05-29 07:59 | disposition home or self-care (01) ==
LOC: LBN 07:58
PROVIDERS: PCP Nurse Practitioner Family; Visit Provider Physician Assistant Medical
DX: R19.7 Diarrhea, unspecified; K50.00 Crohn's disease of small intestine without complications
CPT/HCPCS: 87329; 87338; 87505; 82710; 83993; 87177

== ENCOUNTER 2023-07-13 19:36 | Outpatient (REF) | payer OTHER, SELFPAY ==
[2023-07-13 20:02] LABS: TSH (W/Ref FT4) 2.35 uIU/mL (0.36-3.74)
== END 2023-07-13 19:37 | disposition home or self-care (01) ==
LOC: NCHCN 19:36
PROVIDERS: PCP Nurse Practitioner Family; Visit Provider Nurse Practitioner Family
DX: E06.3 Autoimmune thyroiditis (principal)
CPT/HCPCS: 84443

== ENCOUNTER 2023-08-18 16:11 | Outpatient (CLI) | payer OTHER, SELFPAY ==
[2023-08-18 14:26] LABS: Abs Immature Grans 0.05 10^3/uL (0.0-0.06); Absolute Basophil Count 0.03 10^3/uL (0.0-0.2); Absolute Eosinophil Count 0.06 10^3/uL (0.0-0.7); Absolute Lymphocyte Count 1.36 10^3/uL (1.2-3.4); Absolute Monocyte Count 0.78 10^3/uL (0.1-0.8); Absolute Neutrophil Count 7.99 10^3/uL (1.2-6.7); Basophils % 0.3; Eosinophils % 0.6; HCT 39.8 % (36.0-46.0); HGB 12.7 g/dL (11.2-15.7); Immature Grans % 0.5; Lymphocytes % 13.2; MCH 27.4 pg (27.0-33.0); MCHC 31.9 % (32.0-36.0); MCV 86 fL (80-95); MPV 8.6 fL (8.0-11.0); Monocytes % 7.6; Neutrophils % 77.8; Platelet Count 323 10^3/uL (130-400); RBC 4.64 10^6/uL (3.93-5.22); RDW 14.3 % (11.7-14.6); RDW-SD 44.8 fL; WBC 10.27 10^3/uL (4.4-10.8)
[2023-08-18 15:02] LABS: ALT 22 U/L (14-59); AST 19 U/L (15-37); Albumin 3.5 g/dL (3.4-5.0); Alkaline Phosphatase 59 U/L (46-116); Bilirubin, Direct 0.1 mg/dL (0.0-0.2); Bilirubin, Total 0.5 mg/dL (0.2-1.0); Total Protein 7.2 g/dL (6.4-8.2)
[2023-08-18 15:05] LABS: C-Reactive Protein < 0.50 mg/dL (<or=0.5)
== END 2023-08-18 16:12 | disposition home or self-care (01) ==
LOC: LBO 16:12
PROVIDERS: PCP Nurse Practitioner Family; Visit Provider Internal Medicine Gastroenterology
DX: K50.00 Crohn's disease of small intestine without complications (principal)
CPT/HCPCS: 36415; 80076; 85025; 86140

== ENCOUNTER 2023-11-02 05:19 | Outpatient (CLI) | payer OTHER, SELFPAY ==
[2023-11-02 14:56] LABS: Abs Immature Grans 0.02 10^3/uL (0.0-0.06); Absolute Basophil Count 0.04 10^3/uL (0.0-0.2); Absolute Eosinophil Count 0.17 10^3/uL (0.0-0.7); Absolute Lymphocyte Count 1.13 10^3/uL (1.2-3.4); Absolute Monocyte Count 0.53 10^3/uL (0.1-0.8); Absolute Neutrophil Count 4.73 10^3/uL (1.2-6.7); Basophils % 0.6 %; Eosinophils % 2.6 %; HCT 39.4 % (36.0-46.0); HGB 12.8 g/dL (11.2-15.7); Immature Grans % 0.3 %; Lymphocytes % 17.1 %; MCH 28.1 pg (27.0-33.0); MCHC 32.5 % (32.0-36.0); MCV 87 fL (80-95); MPV 9.4 fL (8.0-11.0); Neutrophils % 71.4 %; Platelet Count 310 10^3/uL (130-400); RBC 4.55 10^6/uL (3.93-5.22); RDW 12.7 % (11.7-14.6); RDW-SD 40.4 fL; WBC 6.62 10^3/uL (4.4-10.8)
[2023-11-02 16:35] LABS: ALT 24 U/L (14-59); AST 17 U/L (15-37); Albumin 3.8 g/dL (3.4-5.0); Alkaline Phosphatase 64 U/L (46-116); Bilirubin, Direct 0.1 mg/dL (0.0-0.2); Bilirubin, Total 0.4 mg/dL (0.2-1.0); Total Protein 7.9 g/dL (6.4-8.2)
[2023-11-02 16:36] LABS: C-Reactive Protein < 0.50 mg/dL (<or=0.5)
== END 2023-11-02 05:20 | disposition home or self-care (01) ==
PROVIDERS: Visit Provider Internal Medicine Gastroenterology
DX: K50.00 Crohn's disease of small intestine without complications (principal)
CPT/HCPCS: 36415; 80076; 85025; 86140

== ENCOUNTER 2023-11-30 04:55 | Outpatient (CLI) | payer OTHER, SELFPAY ==
[2023-11-30 15:01] LABS: Abs Immature Grans 0.02 10^3/uL (0.0-0.06); Absolute Basophil Count 0.02 10^3/uL (0.0-0.2); Absolute Eosinophil Count 0.21 10^3/uL (0.0-0.7); Absolute Lymphocyte Count 1.26 10^3/uL (1.2-3.4); Absolute Monocyte Count 0.53 10^3/uL (0.1-0.8); Absolute Neutrophil Count 4.24 10^3/uL (1.2-6.7); Basophils % 0.3 %; Eosinophils % 3.3 %; HGB 12.5 g/dL (11.2-15.7); Immature Grans % 0.3 %; Lymphocytes % 20.1 %; MCH 27.8 pg (27.0-33.0); MCHC 32.9 % (32.0-36.0); MCV 85 fL (80-95); MPV 9.2 fL (8.0-11.0); Monocytes % 8.4 %; Neutrophils % 67.6 %; Platelet Count 299 10^3/uL (130-400); RBC 4.49 10^6/uL (3.93-5.22); RDW 12.6 % (11.7-14.6); RDW-SD 38.6 fL; WBC 6.28 10^3/uL (4.4-10.8)
[2023-11-30 16:00] LABS: ALT 21 U/L (14-59); AST 15 U/L (15-37); Albumin 3.6 g/dL (3.4-5.0); Alkaline Phosphatase 66 U/L (46-116); Bilirubin, Direct 0.1 mg/dL (0.0-0.2); Bilirubin, Total 0.37 mg/dL (0.2-1.0); C-Reactive Protein < 0.50 mg/dL (<or=0.5); Total Protein 7.7 g/dL (6.4-8.2)
== END 2023-11-30 04:56 | disposition home or self-care (01) ==
PROVIDERS: Visit Provider Internal Medicine Gastroenterology
DX: K50.00 Crohn's disease of small intestine without complications (principal)
CPT/HCPCS: 36415; 80076; 85025; 86140

== ENCOUNTER 2023-12-27 16:12 | Outpatient (REF) | payer OTHER, SELFPAY ==
[2023-12-27 20:58] LABS: Bilirubin Negative (Negative); Blood Large (Negative); Clarity Clear (Clear); Glucose Negative (Negative); Ketones Negative (Negative); Leukocyte Esterase Negative (Negative); Nitrite Positive (Negative); Specific Gravity >= 1.030 (1.005-1.025); Urobilinogen 0.2 mg/dL (Up to 0.2); pH 5.5 (5-8)
[2023-12-27 21:21] LABS: Bacteria Few HPF (Negative); Crystals Negative HPF (Negative); Epithelial Cells Rare HPF (Negative); Mucus Negative (Negative); WBC Negative HPF (0-5)
[2023-12-27 21:22] LABS: C & S Indicated? No
== END 2023-12-27 16:13 | disposition home or self-care (01) ==
LOC: LBN 16:12
PROVIDERS: Visit Provider Nurse Practitioner Family
DX: R39.9 Unspecified symptoms and signs involving the genitourinary system (principal)
CPT/HCPCS: 81003; 81015

== ENCOUNTER 2024-01-11 15:20 | Outpatient (REF) | payer OTHER, SELFPAY ==
[2024-01-11 16:47] LABS: HCT 39.5 % (36.0-46.0); MCH 28.1 pg (27.0-33.0); MCHC 32.9 % (32.0-36.0); MCV 86 fL (80-95); MPV 9.8 fL (8.0-11.0); Platelet Count 318 10^3/uL (130-400); RBC 4.62 10^6/uL (3.93-5.22); RDW 13.2 % (11.7-14.6); RDW-SD 41.1 fL; WBC 7.08 10^3/uL (4.4-10.8)
[2024-01-11 17:46] LABS: ALT 21 U/L (14-59); AST 28 U/L (15-37); Albumin 3.7 g/dL (3.4-5.0); Alkaline Phosphatase 69 U/L (46-116); Anion Gap 11.7 mmol/L (3-11); BUN 13 mg/dL (7-18); Bilirubin, Total 0.27 mg/dL (0.2-1.0); CO2 25.3 mmol/L (21.0-32.0); CREATININE 0.7 mg/dL (0.55-1.02); Calcium 8.7 mg/dL (8.5-10.1); Chloride 106 mmol/L (98-107); Estimated GFR 107.28 (mL/min/1.73m2); FREE T4 0.94 ng/dL (0.76-1.46); Glucose 82 mg/dL (74-106); Sodium 143 mmol/L (136-145); TSH 5.46 uIU/Ml (0.36-3.74); Total Protein 7.6 g/dL (6.4-8.2)
[2024-01-11 18:02] LABS: Bilirubin Negative (Negative); Blood Small (Negative); Clarity Sl Cloudy (Clear); Glucose Negative (Negative); Ketones Trace mg/dL (Negative); Leukocyte Esterase Negative (Negative); Nitrite Negative (Negative); Specific Gravity >= 1.030 (1.005-1.025); Urobilinogen 0.2 mg/dL (Up to 0.2); pH 5.5 (5-8)
[2024-01-11 19:23] LABS: Bacteria Few HPF (Negative); C & S Indicated? No; Casts Negative LPF (Negative); Crystals Negative HPF (Negative); Epithelial Cells Negative HPF (Negative); Mucus Negative (Negative); WBC Negative HPF (0-5)
[2024-01-11 22:00] LABS: Folate > 20.0 ng/mL (8.6-20.0); Vitamin B12 714 pg/mL (193-986); Vitamin D 25 Total 25.6 ng/mL (30-100)
== END 2024-01-11 15:21 | disposition home or self-care (01) ==
LOC: NCHCN 15:20
PROVIDERS: Visit Provider Nurse Practitioner Family
DX: R35.1 Nocturia (principal)
CPT/HCPCS: 80053; 82306; 85027; 81003; 81015; 82607; 82746; 84439; 84443

== ENCOUNTER 2024-04-03 08:56 | Emergency (ER) | payer OTHER, SELFPAY ==
[2024-04-03] VITALS (37 sets, daily range): BP systolic 110–142; BP diastolic 68–88; PULSE 79–118; RESP 11–28; TEMP 36.6; O2SAT 95–100
[2024-04-03 09:37] LABS: Abs Immature Grans 0.05 10^3/uL (0.0-0.06); Absolute Basophil Count 0.06 10^3/uL (0.0-0.2); Absolute Eosinophil Count 0.02 10^3/uL (0.0-0.7); Absolute Lymphocyte Count 0.86 10^3/uL (1.2-3.4); Absolute Monocyte Count 0.91 10^3/uL (0.1-0.8); Absolute Neutrophil Count 7.84 10^3/uL (1.2-6.7); Basophils % 0.6 %; Eosinophils % 0.2 %; HCT 44.6 % (36.0-46.0); Immature Grans % 0.5 %; Lymphocytes % 8.8 %; MCH 27.9 pg (27.0-33.0); MCHC 33.6 % (32.0-36.0); MCV 83 fL (80-95); MPV 8.8 fL (8.0-11.0); Monocytes % 9.3 %; Neutrophils % 80.6 %; Platelet Count 437 10^3/uL (130-400); RBC 5.38 10^6/uL (3.93-5.22); RDW 12.8 % (11.7-14.6); RDW-SD 38.5 fL; WBC 9.74 10^3/uL (4.4-10.8)
[2024-04-03 09:38] LABS: ESR 22 mm/hr (0-20)
[2024-04-03] MEDS: Ondansetron 4 MG/2 ML VIAL 8 MG IVP (09:45)
--- NOTE | 2024-04-03 09:56 | ED.GENADUL_ITS ---
Discharge Plan Disposition Patient Disposition: Home Condition: Stable Discharge Details Clinical Impression: Diarrhea, Nausea, Dehydration Primary Care Provider: Vanna Garcia ED Provider: Hamlet Nunez Home Meds and New Rx's Prescriptions: New ondansetron 4 mg tablet,disintegrating 4 mg PO Q8H PRN (Reason: nausea and vomiting) Qty: 20 0RF promethazine 25 mg tablet 25 mg PO Q6H PRN (Reason: nausea and vomiting) Qty: 10 0RF No Action pantoprazole [Protonix] 40 mg tablet,delayed release (DR/EC) 40 mg PO DAILY Qty: 30 12RF Skyrizi 60 mg/mL solution 600 mg IV Q4W Rx Instructions: administer at weeks 0, 4, and 8 of treatment Skyrizi 360 mg/2.4 mL (150 mg/mL) wearable injector subcut .q 8 weeks cholecalciferol (vitamin D3) 50 mcg (2,000 unit) capsule 50 mcg PO DAILY levothyroxine 125 mcg tablet 125 mcg PO DAILY AM Patient Comments: TAKE ONE TABLET BY MOUTH EVERY DAY fexofenadine [Argelia Allergy] 60 mg Tablet 60 mg PO DAILY cyanocobalamin (vitamin B-12) 1,000 mcg Tablet 1,000 mcg PO DAILY multivitamin [Daily Multi-Vitamin] Tablet 1 tab PO DAILY Discharge Instructions Instructions: Dehydration, Adult ED Additional Instructions: * Please touch base with your GI doctor to discuss your ongoing diarrhea * Return with severe abdominal pain or fever * You have been prescribed nausea medication. Please take this as needed and increase your oral fluid intake HPI General Date/Time Provider Initiated Documentation: 04/03/24 09:08 . Limitations to Documentation: no limitations . Information obtained by: patient . HPI Narrative: 49-year-old female with past medical history including Crohn's disease, not currently on treatment presents for evaluation of diarrhea. Symptoms started last Wednesday and have been persistent. She has started taking Pepto-Bismol and noted that her stool has changed color. She has had 3 episodes of vomiting. No significant abdominal pain or fever. She reports that when the symptoms started on Wednesday, her sister also had diarrhea and they attributed it to something that she ate however her sisters diarrhea or resolved and hers has persisted. She has not been on Crohn's therapy secondary to insurance medication issues since December. Her last colonoscopy was last month but was unable to complete the study due to swelling within her small bowel. She is followed by GI at [facility]. Related Data Home Medications ?Medication ?Instructions ?Recorded ?Confirmed levothyroxine 125 mcg tablet 125 mcg PO DAILY AM 10/12/20 04/03/24 cyanocobalamin (vitamin B-12) 1,000 mcg PO DAILY 06/16/21 04/03/24 1,000 mcg tablet fexofenadine 60 mg tablet (Argelia 60 mg PO DAILY 06/16/21 04/03/24 Allergy) multivitamin (Daily Multi-Vitamin 1 tab PO DAILY 06/20/21 04/03/24 tablet) pantoprazole 40 mg tablet,delayed 40 mg PO DAILY #30 tabs 02/15/23 04/03/24 release (Protonix) cholecalciferol (vitamin D3) 50 50 mcg PO DAILY 12/27/23 04/03/24 mcg (2,000 unit) capsule risankizumab-rzaa 360 mg/2.4 mL mg subcut .q 8 weeks chrons 12/27/23 (150 mg/mL) subcut wearable injector (Skyrizi) risankizumab-rzaa 60 mg/mL 600 mg IV Q4W 12/27/23 04/03/24 intravenous solution (Skyrizi) ondansetron 4 mg disintegrating 4 mg PO Q8H PRN nausea and 04/03/24 tablet vomiting #20 tabs promethazine 25 mg tablet 25 mg PO Q6H PRN nausea and 04/03/24 vomiting #10 tabs Previous Rx's ?Medication ?Instructions ?Recorded pantoprazole 40 mg tablet,delayed 40 mg PO DAILY #30 tabs 02/15/23 release (Protonix) ondansetron 4 mg disintegrating 4 mg PO Q8H PRN nausea and 04/03/24 tablet vomiting #20 tabs promethazine 25 mg tablet 25 mg PO Q6H PRN nausea and 04/03/24 vomiting #10 tabs Allergies Allergy/AdvReac Type Severity Reaction Status Date / Time No Known Allergies Allergy Unverified 04/03/24 09:13 General Stated Complaint: Nausea/Vomit/Diar OKSANA: 3 Exam Narrative Exam Narrative: Review of Systems: All systems reviewed & are unremarkable except as noted in HPI and below Well-developed, no acute distress NCAT moist mucus membranes mild tachycardia Unlabored respiratory effort Nondistended abdomen , soft no signficiant tenderness Course Vital Signs Vital signs: Vital Signs Temperature 36.6 C 04/03/24 09:02 Pulse 110 H 04/03/24 09:02 Respiratory Rate 16 04/03/24 09:02 Blood Pressure 140/84 04/03/24 09:02 Pulse Oximetry 100 04/03/24 09:02 Temperature 36.6 C 04/03/24 09:02 Temperature Source Temporal Artery Scan 04/03/24 09:02 Pulse 118 H 04/03/24 09:09 Respiratory Rate 16 04/03/24 09:02 Respiratory Effort Normal, Non-Labored 04/03/24 09:07 Blood Pressure 123/78 04/03/24 09:09 Blood Pressure Position Sitting 04/03/24 09:02 Pulse Oximetry 100 04/03/24 09:02 Oxygen Delivery Method Room Air 04/03/24 09:02 Oxygen Flow Rate 0 04/03/24 09:02 Pain Level 4 04/03/24 09:02 Lab/Test Results Lab/Test Results: Laboratory Tests Range/Units 04/03/24 09:30 WBC (4.4-10.8) 10^3/uL 9.74 RBC (3.93-5.22) 10^6/uL 5.38 H Hgb (11.2-15.7) g/dL 15.0 Hct (36.0-46.0) % 44.6 MCV (80-95) fL 83 MCH (27.0-33.0) pg 27.9 MCHC (32.0-36.0) % 33.6 RDW (11.7-14.6) % 12.8 Plt Count (130-400) 10^3/uL 437 H MPV (8.0-11.0) fL 8.8 Immature Gran % % 0.5 Neutrophils % % 80.6 Lymphocytes % % 8.8 Monocytes % % 9.3 Eosinophils % % 0.2 Basophils % % 0.6 Nucleated RBC % (0.0-0.3) % 0.0 Absolute Neutrophils (1.2-6.7) 10^3/uL 7.84 H Absolute Lymphocytes (1.2-3.4) 10^3/uL 0.86 L Absolute Monocytes (0.1-0.8) 10^3/uL 0.91 H Absolute Eosinophils (0.0-0.7) 10^3/uL 0.02 Absolute Basophils (0.0-0.2) 10^3/uL 0.06 ESR (0-20) mm/hr 22 H Medical Decision Making Emergent evaluation of diarrhea in a patient with Crohn's disease. She does report black stool but is on Pepto-Bismol, so I suspect that this is the cause. Currently she is hemodynamically stable with some mild tachycardia. She does not have a focal abdominal exam so I doubt intra-abdominal process. She has never had significant, complication like abscess or fistula. Currently unmedicated for Crohn's but followed by GI. Could be Crohn's failure, also consider viral illness, foodborne illness. Will evaluate for significant electrolyte derangement or infectious etiology. Lab work reviewed. There is no significant leukocytosis. No anemia noted. Her ESR and CRP are slightly above normal which is to be expected. There is not significant elevation in these that would be concerning for an acute Crohn's flare. Her potassium was initially slightly low and she was repleted orally. Slight elevation in creatinine. She was resuscitated with IV fluids and repeat BMP demonstrates improvement in both potassium and creatinine. After IV fluids, the patient reports significant improvement in her symptoms and overall appearance. At this time I feel she is stable for discharge home with instructi ons for oral hydration. Medications provided for nausea. Recommend close follow-up with GI. Return precautions Quality:SDOH Health Related Social Needs: No Data to Display PFSH All Active Problems (Updated 04/03/24 @ 12:44 by Hamlet Nunez MD) Dehydration (Acute) Nausea (Acute) Diarrhea (Acute) Thyroid nodule (Acute) Blastocystis hominis (Acute) Gas bloat syndrome (Acute) Daily consumption of alcohol (Acute) Chronic GERD (Acute) Rash, skin (Acute) Eczema (Acute) Calcaneal spur of right foot (Acute) Achilles tendinitis of right lower extremity (Acute) Achilles tendinitis of both lower extremities (Acute) Hammertoe of left foot (Acute) Corns and callosities (Acute) Tinea pedis (Acute) Medical History Goiter Fatigue History of varicose veins Patrick's thyroiditis Acid reflux Allergic rhinitis Vitamin B12 deficiency Surgical History History of colonoscopy (~02/2023) Biopsies taken / terminal ileum cannulated repeat in 2032 History of esophagogastroduodenoscopy (~02/2023) Biopsies taken History of removal of ovarian cyst and fallopian tube Social History Smoking/Tobacco Use Status: Former Tobacco Use Quit Date: 05/24/16 Smoking risk assessment performed?: Yes Alcohol Intake: current Alcohol Intake frequency: a few times a week Alcohol type: beer and hard liquor Drug use: Occasionally Substance use type: marijuana Details: patient state she uses THC gummies Housing: house Do you feel safe at home: Yes Do you feel safe in your relationship?: Yes PAWSS Have you Been Recently Intoxicated or Drunk Within the Last 30 days?: No Have you Ever Experienced Previous Episodes of Alcohol Withdrawal?: No Have you ever Experienced Withdrawal Seizures?: No Have you ever Experienced Delirium Tremens(DT)s?: No Have you ever undergone Alcohol Rehabilitation Treatment (i.e, inpt ot outpatient treatment programs)?: No Have you ever Experienced Blackouts?: No Have you ever Combined Alcohol with other Downers within the last 90 days?: No Have you ever Combined Alcohol with any other Substance of Abuse during the last 90 days?: No Positive Blood Alcohol level on Presentation? [PCS.BAL]: No Evidence of Increased Autonomic Activity (i.e. HR>120, tremor, sweating, ag itation, nausea)?: No Result: 0
[2024-04-03 10:20] LABS: ALT 21 U/L (14-59); AST 11 U/L (15-37); Albumin 3.8 g/dL (3.4-5.0); Alkaline Phosphatase 74 U/L (46-116); Anion Gap 13.2 mmol/L (3-11); BUN 20 mg/dL (7-18); C-Reactive Protein 3.29 mg/dL (<or=0.5); CO2 26.8 mmol/L (21.0-32.0); CREATININE 1.2 mg/dL (0.55-1.02); Calcium 9.5 mg/dL (8.5-10.1); Chloride 101 mmol/L (98-107); Estimated GFR 55.84 (mL/min/1.73m2); Glucose 114 mg/dL (74-106); Potassium 3.3 mmol/L (3.5-5.1); Sodium 141 mmol/L (136-145); Total Protein 8.8 g/dL (6.4-8.2)
[2024-04-03] MEDS: Potassium Chloride Liquid 20 MEQ PKT 40 MEQ PO (10:50)
[2024-04-03] MEDS: Lactated Ringers 1,000 ML 1000 ML IV (10:52)
[2024-04-03 11:21] LABS: Lipase 37 U/L (16-77)
[2024-04-03 12:37] LABS: Anion Gap 8.4 mmol/L (3-11); BUN 19 mg/dL (7-18); CO2 29.6 mmol/L (21.0-32.0); CREATININE 0.9 mg/dL (0.55-1.02); Calcium 9.1 mg/dL (8.5-10.1); Chloride 104 mmol/L (98-107); Estimated GFR 78.86 (mL/min/1.73m2); Glucose 99 mg/dL (74-106); Potassium 3.6 mmol/L (3.5-5.1); Sodium 142 mmol/L (136-145)
== END 2024-04-03 12:55 | disposition home or self-care (01) ==
PROVIDERS: Emergency Provider Emergency Medicine; PCP Nurse Practitioner Family
DX: R19.7 Diarrhea, unspecified (principal); R11.0 Nausea; E86.0 Dehydration; Z87.891 Personal history of nicotine dependence
CPT/HCPCS: 80048; 80053; 83690; 85652; 96361; 96374; 99284; 85025; 86140; 99283; J2405

== ENCOUNTER 2024-05-16 03:35 | Outpatient (CLI) | payer OTHER, SELFPAY ==
[2024-05-16 08:07] LABS: Abs Immature Grans 0.02 10^3/uL (0.0-0.06); Absolute Basophil Count 0.05 10^3/uL (0.0-0.2); Absolute Eosinophil Count 0.17 10^3/uL (0.0-0.7); Absolute Lymphocyte Count 1.09 10^3/uL (1.2-3.4); Basophils % 0.6 %; Eosinophils % 2.2 %; HCT 39.4 % (36.0-46.0); HGB 12.6 g/dL (11.2-15.7); Immature Grans % 0.3 %; Lymphocytes % 14.1 %; MCH 28.6 pg (27.0-33.0); MCV 90 fL (80-95); MPV 9.1 fL (8.0-11.0); Monocytes % 5.2 %; Neutrophils % 77.6 %; Platelet Count 222 10^3/uL (130-400); RDW 13.9 % (11.7-14.6); RDW-SD 45.7 fL; WBC 7.73 10^3/uL (4.4-10.8)
[2024-05-16 08:26] LABS: ALT 21 U/L (14-59); AST 13 U/L (15-37); Albumin 3.4 g/dL (3.4-5.0); Alkaline Phosphatase 42 U/L (46-116); Anion Gap 5.8 mmol/L (3-11); BUN 14 mg/dL (7-18); Bilirubin, Direct 0.1 mg/dL (0.0-0.2); Bilirubin, Total 0.31 mg/dL (0.2-1.0); CO2 28.2 mmol/L (21.0-32.0); CREATININE 0.8 mg/dL (0.55-1.02); Calcium 8.5 mg/dL (8.5-10.1); Chloride 107 mmol/L (98-107); Estimated GFR 90.83 (mL/min/1.73m2); Glucose 106 mg/dL (74-106); Potassium 4.4 mmol/L (3.5-5.1); Sodium 141 mmol/L (136-145); Total Protein 7.1 g/dL (6.4-8.2)
[2024-05-16 08:27] LABS: C-Reactive Protein < 0.50 mg/dL (<or=0.5)
== END 2024-05-16 03:36 | disposition home or self-care (01) ==
PROVIDERS: PCP Nurse Practitioner Family; Visit Provider Internal Medicine Gastroenterology
DX: K50.00 Crohn's disease of small intestine without complications (principal)
CPT/HCPCS: 36415; 80053; 80076; 85025; 86140

== ENCOUNTER 2024-07-27 03:06 | Outpatient (CLI) | payer OTHER, SELFPAY ==
[2024-07-27 15:49] LABS: Abs Immature Grans 0.01 10^3/uL (0.0-0.06); Absolute Basophil Count 0.03 10^3/uL (0.0-0.2); Absolute Eosinophil Count 0.16 10^3/uL (0.0-0.7); Absolute Lymphocyte Count 1.33 10^3/uL (1.2-3.4); Absolute Monocyte Count 0.77 10^3/uL (0.1-0.8); Absolute Neutrophil Count 4.43 10^3/uL (1.2-6.7); Basophils % 0.4 %; Eosinophils % 2.4 %; HCT 38.7 % (36.0-46.0); HGB 12.9 g/dL (11.2-15.7); Immature Grans % 0.1 %; Lymphocytes % 19.8 %; MCH 28.7 pg (27.0-33.0); MCHC 33.3 % (32.0-36.0); MCV 86 fL (80-95); MPV 9.6 fL (8.0-11.0); Monocytes % 11.4 %; Neutrophils % 65.9 %; Platelet Count 265 10^3/uL (130-400); RDW 12.5 % (11.7-14.6); RDW-SD 39.1 fL; WBC 6.73 10^3/uL (4.4-10.8)
[2024-07-27 16:15] LABS: ALT 30 U/L (14-59); AST 18 U/L (15-37); Albumin 3.8 g/dL (3.4-5.0); Alkaline Phosphatase 66 U/L (46-116); Anion Gap 9.4 mmol/L (3-11); BUN 17 mg/dL (7-18); Bilirubin, Total 0.4 mg/dL (0.2-1.0); CO2 26.6 mmol/L (21.0-32.0); CREATININE 0.7 mg/dL (0.55-1.02); Chloride 107 mmol/L (98-107); Estimated GFR 106.62 (mL/min/1.73m2); Glucose 87 mg/dL (74-106); Potassium 3.9 mmol/L (3.5-5.1); Sodium 143 mmol/L (136-145); Total Protein 7.6 g/dL (6.4-8.2)
[2024-07-27 16:16] LABS: C-Reactive Protein < 0.50 mg/dL (<or=0.5)
[2024-07-27 16:30] LABS: Iron 31 ug/dL (50-170); Total Iron Binding Capacity 327 ug/dL (250-450); Transferrin Sat 9 % (15-50)
[2024-07-27 16:53] LABS: Ferritin 62 ng/mL (8-252); Vitamin B12 906 pg/mL (193-986); Vitamin D 25 Total 31 ng/mL (30-100)
[2024-08-02 01:42] LABS: Infliximab 5.7 mcg/mL (<=5.0)
== END 2024-07-27 03:07 | disposition home or self-care (01) ==
PROVIDERS: PCP Nurse Practitioner Family; Visit Provider Internal Medicine Gastroenterology
DX: K50.00 Crohn's disease of small intestine without complications (principal); R53.82 Chronic fatigue, unspecified
CPT/HCPCS: 36415; 80053; 82306; 82397; 82607; 82728; 83540; 83550; 85025; 86140

== ENCOUNTER 2024-09-21 16:43 | Outpatient (REF) | payer OTHER, SELFPAY ==
[2024-09-21 18:03] LABS: TSH (W/Ref FT4) 4.24 uIU/mL (0.36-3.74)
[2024-09-21 18:20] LABS: FREE T4 0.92 ng/dL (0.76-1.46)
== END 2024-09-21 16:44 | disposition home or self-care (01) ==
LOC: NCHCN 16:43
PROVIDERS: PCP Nurse Practitioner Family; Visit Provider Nurse Practitioner Family
DX: R53.83 Other fatigue (principal)
CPT/HCPCS: 84439; 84443

== ENCOUNTER 2024-11-07 03:37 | Outpatient (CLI) | payer OTHER, SELFPAY ==
[2024-11-07 16:34] LABS: Abs Immature Grans 0.03 10^3/uL (0.0-0.06); Absolute Basophil Count 0.01 10^3/uL (0.0-0.2); Absolute Eosinophil Count 0.01 10^3/uL (0.0-0.7); Absolute Lymphocyte Count 0.86 10^3/uL (1.2-3.4); Absolute Neutrophil Count 8.06 10^3/uL (1.2-6.7); Basophils % 0.1 %; Eosinophils % 0.1 %; HCT 40.4 % (36.0-46.0); HGB 13.1 g/dL (11.2-15.7); Immature Grans % 0.3 %; Lymphocytes % 9.1 %; MCH 27.3 pg (27.0-33.0); MCHC 32.4 % (32.0-36.0); MCV 84 fL (80-95); MPV 9.2 fL (8.0-11.0); Monocytes % 5.3 %; Neutrophils % 85.1 %; Platelet Count 312 10^3/uL (130-400); RBC 4.79 10^6/uL (3.93-5.22); RDW 12.9 % (11.7-14.6); RDW-SD 39.3 fL; WBC 9.47 10^3/uL (4.4-10.8)
[2024-11-07 18:16] LABS: Iron 25 ug/dL (50-170); Total Iron Binding Capacity 292 ug/dL (250-450); Transferrin Sat 9 % (15-50)
[2024-11-07 18:35] LABS: ALT 38 U/L (14-59); AST 23 U/L (15-37); Albumin 3.7 g/dL (3.4-5.0); Alkaline Phosphatase 95 U/L (46-116); Anion Gap 9.1 mmol/L (3-11); BUN 17 mg/dL (7-18); Bilirubin, Total 0.3 mg/dL (0.2-1.0); CO2 28.9 mmol/L (21.0-32.0); CREATININE 0.9 mg/dL (0.55-1.02); Calculated LDL 106 mg/dL (<100); Chloride 102 mmol/L (98-107); Cholesterol 171 mg/dL (<200); Estimated GFR 78.86 (mL/min/1.73m2); Ferritin 81 ng/mL (8-252); Glucose 102 mg/dL (74-106); HDL Cholesterol 53 mg/dL (>or=50); Potassium 3.6 mmol/L (3.5-5.1); Sodium 140 mmol/L (136-145); Total Protein 7.9 g/dL (6.4-8.2); Triglyceride 64 mg/dL (<150)
[2024-11-07 20:54] LABS: C-Reactive Protein < 0.50 mg/dL (<or=0.5)
[2024-11-14 16:19] LABS: Infliximab <1.0 mcg/mL (<=5.0)
[2024-11-15 14:55] LABS: Infliximab Ab 39.6 U/mL (<50.0)
== END 2024-11-07 03:38 | disposition home or self-care (01) ==
PROVIDERS: PCP Nurse Practitioner Family; Visit Provider Internal Medicine Gastroenterology
DX: K50.00 Crohn's disease of small intestine without complications (principal)
CPT/HCPCS: 36415; 80053; 80061; 82397; 82728; 83540; 83550; 85025; 86140

== ENCOUNTER 2024-11-12 07:16 | Outpatient (REF) | payer OTHER, SELFPAY ==
[2024-11-16 15:23] LABS: Calprotectin 468 mcg/g
== END 2024-11-12 07:17 | disposition home or self-care (01) ==
LOC: LBN 07:16
PROVIDERS: PCP Nurse Practitioner Family; Visit Provider Internal Medicine Gastroenterology
DX: K50.00 Crohn's disease of small intestine without complications (principal)
CPT/HCPCS: 83993

== ENCOUNTER 2025-03-12 03:56 | Outpatient (CLI) | payer OTHER, SELFPAY ==
[2025-03-12 15:43] LABS: Abs Immature Grans 0.02 10^3/uL (0.0-0.06); HCT 33.1 % (36.0-46.0); HGB 11.1 g/dL (11.2-15.7); Immature Grans % 0.3 %; MCH 28.8 pg (27.0-33.0); MCHC 33.5 % (32.0-36.0); MCV 86 fL (80-95); MPV 9.0 fL (8.0-11.0); Platelet Count 304 10^3/uL (130-400); RBC 3.85 10^6/uL (3.93-5.22); RDW 13.2 % (11.7-14.6); RDW-SD 41.3 fL; WBC 6.57 10^3/uL (4.4-10.8)
[2025-03-12 16:50] LABS: ALT 29 U/L (14-59); AST 19 U/L (15-37); Albumin 3.4 g/dL (3.4-5.0); Alkaline Phosphatase 56 U/L (46-116); Anion Gap 10.2 mmol/L (3-11); BUN 10 mg/dL (7-18); Bilirubin, Total 0.3 mg/dL (0.2-1.0); CO2 26.8 mmol/L (21.0-32.0); Calcium 8.4 mg/dL (8.5-10.1); Calculated LDL 107 mg/dL (<100); Chloride 103 mmol/L (98-107); Cholesterol 170 mg/dL (<200); Estimated GFR 90.83 (mL/min/1.73m2); Glucose 85 mg/dL (74-106); HDL Cholesterol 50 mg/dL (>or=50); Potassium 3.5 mmol/L (3.5-5.1); Sodium 140 mmol/L (136-145); Total Protein 7.3 g/dL (6.4-8.2); Triglyceride 69 mg/dL (<150)
[2025-03-12 17:32] LABS: C-Reactive Protein < 0.50 mg/dL (<or=0.5)
== END 2025-03-12 03:57 | disposition home or self-care (01) ==
PROVIDERS: PCP Nurse Practitioner Family; Visit Provider Internal Medicine Gastroenterology
DX: K50.00 Crohn's disease of small intestine without complications (principal)
CPT/HCPCS: 36415; 80053; 80061; 85025; 86140